=== PATIENT | female | born 1940 | race Caucasian/White ===

== ENCOUNTER 2016-05-11 16:36 | Emergency (ER) | payer MEDICARE, BC ==
[~2016-05-11 16:36] MED LIST: Acetaminophen 325 MG TAB ONE
--- NOTE | 2016-05-11 18:27 | RAD ---
PORTABLE CHEST: DATE: 05/11/16. PROVIDED CLINICAL HISTORY: Altered mental status. FINDINGS: Comparison 08/19/12. The cardiac silhouette remains enlarged. Patchy parenchymal opacity at the left lung base cannot be excluded. No pleural fluid or pneumothorax evident. IMPRESSION: 1. Cardiomegaly. 2. Possible patchy airspace disease at the left lung base. Please correlate with concerns for pneu monia. Followup is recommended. POS: [facility]
--- NOTE | 2016-05-11 18:32 | CT ---
CT BRAIN 05/11/16 PROVIDED CLINICAL HISTORY: Altered mental status. FINDINGS: Comparison 11/10/15. The ventricular system appears normal in size and morphology. There is no evidence for intracranial hemorrhage, or mass effect. The extracranial soft tissues and osseous structures demonstrate an unre markable CT appearance. IMPRESSION: No evidence for intracranial hemorrhage or mass effect. POS: [facility]
[2016-05-11 19:12] LABS: Bilirubin Negative (Negative); Clarity Clear (Clear); Glucose, Urine (Dipstick) Negative (Negative); Leukocyte Negative (Negative); Nitrite Negative (Negative); Protein, Urine (Dipstick) Negative (Neg-Trace); Specific Gravity, Urine 1.025 (1.005-1.030); Urobilinogen 0.2 mg/dL (0.2-1.0); pH, Urine 6.5 (5.0-9.0)
[2016-05-11 19:13] LABS: Blood, Urine Negative (Negative)
[2016-05-11 19:23] LABS: Amphetamine Not Detected (NotDetected); Barbiturates Screen Not Detected (NotDetected); Benzodiazepine Screen Not Detected (NotDetected); Cocaine Metabolite Screen Not Detected (NotDetected); Medtox Control Line Valid? VALID (VALID); Methadone Not Detected (NotDetected); Methamphetamine Not Detected (NotDetected); Opiate Screen Not Detected (NotDetected); Oxycodone Screen Not Detected (NotDetected); Phencyclidine (PCP) Not Detected (NotDetected); THC/Cannabinoid Screen Not Detected (NotDetected); Tricyclic Screen Detected (NotDetected)
[2016-05-11 19:38] LABS: Hemoglobin 12.6 g/dL (12.0-16.0); Mean Corpuscular HGB CONC 32.1 g/dL (32.0-36.0); Mean Corpuscular Hemoglobin 29.3 pg (27.0-31.0); Mean Corpuscular Volume 91.3 fL (81.0-99.0); RBC Distribution Width 13.6 % (11.5-14.5); Red Blood Cell (RBC) Count 4.31 mill/uL (4.20-5.40); White Blood Cell (WBC) Count 7.4 thou/uL (4.8-10.8)
[2016-05-11 19:39] LABS: #Basophils 0.1 thou/uL (0.0-0.2); #Eosinphils 0.5 thou/uL (0.0-0.7); #Monocytes 0.6 thou/uL (0.11-0.59); #Neutrophils 4.2 thou/uL (1.40-6.50); %Eosinophils 6.8 % (0.0-10.0); %Lymphocytes 26.6 % (21.0-51.0); %Monocytes 8.6 % (0.0-10.0); %Neutrophils 56.9 % (42.0-75.0); MDiff Complete? YES; Manual Diff?? NO; Mean Platelet Volume 7.9 fL (7.4-10.4); Platelet Count 279 thou/uL (130-400)
[2016-05-11 19:42] LABS: INR-International Normal Ratio 0.9; PTT 29.8 SEC (22.9-36.1); Prothrombin Time 12.3 SEC (12.0-14.7)
[2016-05-11 19:43] LABS: CKMB 2.3 ng/mL (0-6.6); Potassium 3.5 mmol/L (3.5-5.1); Sodium 146 mmol/L (136-145); Troponin I Less than 0.010 ng/mL (< 0.028)
[2016-05-11 19:44] LABS: Albumin 3.8 g/dL (3.4-4.8); Anion Gap 19 mmol/L (10-20); BUN (Urea Nitrogen) 18 mg/dL (9.8-20.1); Bilirubin, Total 0.3 mg/dL (0.2-1.2); Calc. Creatinine Clearance 0 mL/min (70-130); Calcium 9.7 mg/dL (7.8-10.44); Carbon Dioxide 23 mmol/L (23-31); Chloride 107 mmol/L (98-107); Estimated GFR-MDRD 52; Globulin 2.5 g/dL (2.4-3.5); Glucose 127 mg/dL (83-110); Protein, Total 6.3 g/dL (5.8-8.1)
[2016-05-11 19:45] LABS: ALT (SGPT) 10 U/L (0-55); AST (SGOT) 20 U/L (5-34); Acetaminophen Less than 3.0 mcg/mL (10.0-30.0); Alcohol Less than 10 mg/dL (Less than 10); Alkaline Phosphatase 68 U/L (40-150)
--- NOTE | 2016-05-11 20:14 | ERRECORD ---
[facility] EMERGENCY RECORD HPI MENTAL STATUS CHANGES (18:02 LHOD) CHIEF COMPLAINT: Patient presents for evaluation of confusion. HISTORIAN: History provided by patient, History provided by patient's caregiver, FRIEND. TIME COURSE: PT HAS HX OF DEMENTIA, BUT FOR PAST FEW WEEKS MORE CONFUSED. 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 FRIENDS DO NOT KNOW IF PT TAKING HER MEDICATION. SHE HAS BEEN INCREASINGLY CONFUSED AND TODAY HALLUCINATED THAT HER WAS IN THE HOUSE . PT ALSO REPORTS SHE TALKED TO EMS AT HER HOUSE, BUT FRIEND REPORTS AMBULANCE WAS NEVER CALLED. ROS (18:07 LHOD) CONSTITUTIONAL: Historian denies fever. CARDIOVASCULAR: Historian denies chest pain, reports edema. SOME SWELLING OF LEFT LEG. RESPIRATORY: Historian denies cough, denies shortness of breath. GI: Historian denies abdominal pain, denies nausea, denies vomiting. GENITOURINARY FEMALE: Historian denies dysuria. MUSCULOSKELETAL: Historian denies back pain, denies neck pain. SKIN: Historian denies rash. NEUROLOGIC: Historian reports confusion. HEMO/LYMPHATIC: Historian denies easy bruising. PSYCHIATRIC: Historian denies alcohol abuse. NOTES: All systems reviewed, negative except as described above. PAST MEDICAL HISTORY MEDICAL HISTORY: Flu vaccine not up to date, Tetanus not up to date, Pneumococcal vaccine not up to date, Past medical history includes history of hypertension, which has been treated, Patient is compliant. Past medical history includes history of hypertension. Verified 11/10/15. (16:54 CJEF) FEMALE SURGICAL HISTORY: Sinus sx,, Surgical history of hysterectomy, Surgical history of mastectomy, of both breasts. (16:54 CJEF) PSYCHIATRIC HISTORY: No previous psychiatric history. (16:54 CJEF) SOCIAL HISTORY: Patient denies alcohol use, Patient denies drug use, Patient has no smoking history, Lives at home, with family, Patient has pets. (16:54 CJEF) NOTES: Nursing records reviewed, HX OF DEMENTIA. GENERALLY CARED FOR BY HER , BUT HE HAS BEEN IN HOSPITAL HERE FOR A COUPLE OF WEEKS WITH ARM FRACTURE AND REHAB. FRIENDS DO NOT KNOW IF PT HAS TAKEN ANY OF HER MEDICATION, OR HOW OFTEN. (20:01 LHOD) KNOWN ALLERGIES No Known Allergies (Unconfirmed) No Known Drug Allergies &a-1R&a+25V*p+0X*f0242M*c202B*c15G*c2P*p-0X&a-25V&a+1R Name: Eli Newman : 1940 F76 MedRec: [id number] AcctNum: [id number] Prepared: MonMay 11, 2016 20:15 by Interface Page 1 of 4 pMD [facility] EMERGENCY RECORD CURRENT MEDICATIONS (16:51 EF) Aricept: TABLET : Strength - 5 mg : ORAL Patient Dose: 1 tab(s) Oral once a day. carvedilol: TABLET : Strength - 6.25 mg : ORAL Patient Dose: 25 tab(s) Oral 2 times a day. cloNIDine HCl: TABLET : Strength - 0.1 mg : ORAL Patient Dose: 1 mg Oral once a day. gabapentin: TABLET : Strength - 300 mg : ORAL Patient Dose: 2 cap(s) Oral 3 times a day. hydrochlorothiazide: TABLET : Strength - 25 mg : ORAL Patient Dose: 1 tab(s) Oral once a day. Lexapro: TABLET : Strength - 20 mg : ORAL Patient Dose: 1 null Oral once a day. losartan: TABLET : Strength - 50 mg : ORAL Patient Dose: 2 tab(s) Oral once a day. SEROquel: TABLET : Strength - 300 mg : ORAL Patient Dose: 50 mg Oral. verapamil: CAPSULE, EXTENDED RELEASE PELLETS 24 HR : Strength - 180 mg : ORAL Patient Dose: 1 tab(s) Oral once a day. VITAL SIGNS VITAL SIGNS: BP: 148/59, Pulse: 74, Resp: 18, Temp: 98.2 (Tympanic), Pain: 0, O2 sat: 100 on Room Air, Time: 05/11/2016 16:42. (16:42 CJEF) BP: 143/67, Pulse: 74, Resp: 17, O2 sat: 100 on Room Air, Time: 05/11/2016 17:06. (17:06 [facility]) BP: 143/65, Pulse: 71, Resp: 18, Pain: 0, O2 sat: 99 on Room Air, Time: 05/11/2016 17:35. (17:35 [facility]) BP: 130/49, Pulse: 72, Resp: 20, Pain: 0, O2 sat: 99 on Room Air, Time: 05/11/2016 18:02. (18:02 CJEF) BP: 129/56, Pulse: 70, Resp: 16, Pain: 9, O2 sat: 99 on Room Air, Time: 05/11/2016 18:26. (18:26 CJEF) BP: 131/54, Pulse: 70, Resp: 18, O2 sat: 100 on Room Air, Time: 05/11/2016 18:44. (18:44 CJEF) BP: 148/65, Pulse: 70, Resp: 18, Temp: 98.5 (Tympanic), Pain: 5, O2 sat: 98 on Room Air, Time: 05/11/2016 19:15. (19:15 CJEF) PHYSICAL EXAM (18:09 LHOD) CONSTITUTIONAL: Vital Signs Reviewed, Patient afebrile, Pulse normal, Blood pressure normal, Respiratory rate normal, AWAKE, ALERT BUT ORIENTED TO PERSON ONLY. &a-1R&a+25V*p+0X*[id number]*c202B*c15G*c2P*p-0X&a-25V&a+1R Name: Eli Newman : 1940 F76 MedRec: [id number] AcctNum: [id number] Prepared: MonMay 11, 2016 20:15 by Interface Page 2 of 4 pMD [facility]GENC[facility] RECORD HEAD: SMALL AREAS OF POSSIBLE BRUISING OVER MALAR AREAS. EYES: Pupils equally round and reactive to light, Extraocular muscles intact. ENT: Pharynx exam normal. NECK: Neck exam included findings of normal range of motion, Trachea midline. RESPIRATORY CHEST: Respiratory exam included findings of no respiratory distress, Breath sounds clear. CARDIOVASCULAR: Cardiovascular exam included findings of heart rate regular rate and rhythm, Heart sounds normal. ABDOMEN FEMALE: Abdominal exam included findings of abdomen nontender. BACK: Back exam normal. UPPER EXTREMITY: Upper extremity exam normal. LOWER EXTREMITY: LEFT ANKLE WITH PITTING EDEMA. NO TENDERNESS OR REDNESS OF LEFT LEG. NEURO: AWAKE, ALERT BUT DEPRESSED APPEARING, STATING SHE HAS PROBLEMS WITH HER MEMORY.. SKIN: NO RASH, POSSIBLE SMALL BRUISING OF BILATERAL MALAR . PSYCHIATRIC: Affect, anxious, ORIENTED TO SELF. EKG INTERPRETATION (17:33 LHOD) 12 LEAD EKG INTERPRETATION: 12 lead EKG interpreted by Emergency Department Physician at time of study, 12 lead EKG shows normal sinus rhythm, Rate (beats per minute): 72, with no ectopics, T waves, flattened, Areas affected: inferior leads, Areas affected: lateral leads, [place] normal. RADIOLOGYINTERPRETATION HEAD: Head CT negative, without contrast. (18:06 LHOD) CHEST: Chest films negative. (17:36 LHOD) MEDICATION ADMINISTRATION SUMMARY Drug Name: *acetaminophen oral, Dose Ordered: 650 mg, Route: Oral, Status: Given, Time: 18:35 05/11/2016, *Additional information available in notes, Detailed record available in Medication Service section. DOCTOR NOTES (20:09 LHOD) TEXT: COMPUTER WAS DOWN AT LEAST AN HOUR WHILE PT WAS IN ED, DELAYING CARE. FRIEND WAS HOPING PT MIGHT BE ADMITTED FOR OBSERVATION, BUT NO BEDS AVAILABLE HERE AND SHE HAS NO MEDICAL NECESSITY TO BE ADMITTED. FRIEND STATES SHE WILL TAKE PT TO SEE DR. SILVER TOMORROW. PROBLEM LIST &a-1R&a+25V*p+0X*[id number]*c202B*c15G*c2P*p-0X&a-25V&a+1R Name: Eli Newman : 1940 F76 MedRec: [id number] AcctNum: [id number] Prepared: MonMay 11, 2016 20:15 by Interface Page 3 of 4 pMD [facility] EM[facility]GENC[facility] RECORD No recorded problems DIAGNOSIS (19:08 LHOD) FINAL: PRIMARY: ALTERED MENTAL STATUS WITH DEMENTIA. PRESCRIPTION No recorded prescriptions DISPOSITION PATIENT: Disposition Type: Discharge, Disposition: *Discharge Home, Condition: Fair. (19:08 LHOD) Patient left the department. (19:38 [facility]) Keith: CJEF=SHARON Manning, Kari LHOD=MD Desiree, Harley &a-1R&a+25V*p+0X*[id number]*c202B*c15G*c2P*p-0X&a-25V&a+1R Name: Eli Newman : 1940 F76 MedRec: [id number] AcctNum: [id number] Prepared: MonMay 11, 2016 20:15 by Interface Page [address] [facility]
--- NOTE | 2016-05-11 20:19 | PICIS ---
[facility] EMERGENCY RECORD TRIAGE (MonMay 11, 2016 16:47 CJEF) TRIAGE NOTES: PT REPORTS "I DONT KNOW" WHEN INITIALLY ASKED WHAT WAS GOING ON. PT REPORTS THAT SHE HAD A NIGHTMARE THIS MORNING THAT "SEEMED SO REAL, I THOUGH HE WAS ". THE PT'S IS CURRENTLY HERE ADMITTED IN THE HOSPTIAL. FRIEND [facility] PT STATES THAT THE PT HAD A CONFUSED EPISODE AND THOUGHT THE WAS AT HOME. THE PT'S FRIEND IS HESITANT TO SAY MUCH IN TRIAGE DUE TO PT WITHIN HEARING RANGE. WILL ASK HER MORE INFO WHEN PT IS IN ROOM. PT REPORTS HEADACHE AND SLIGHT PAIN TO CHEEK THAT SHE STATES IS FROM SINUS ISSUES. WHEN PT ALONE, PT STATES THAT SHE WAS SENT HERE FOR THE CONFUSED EPISODE, THOUGH SHE WILL NOT STATE ANY THING MORE. PT'S FRIEND PULLED ASIDE. FRIEND STATES THAT OVER LAST COUPLE MONTHS, THE PT HAS BEEN VERY CONFUSED, WORSE SINCE THE PT HAS BEEN ADMITTED IN THIS HOSPITAL. PT LOSES HER CAR, DRIVES RECKLESSLY BY WEAVING ALL ON THE ROAD, SEES PEOPLE IN HER HOUSE, AND HALLUCINATING. (MonMay 11, 2016 16:47 CJEF) PATIENT: NAME: Eli Newman, AGE: 76, GENDER: female, : Sun 1940, TIME OF GREET: MonMay 11, 2016 16:37, PREFERRED LANGUAGE: Hong Konger, ETHNICITY: Not or , ECODE BILLING MAP: [facility], SSN: [id number], Zip Code: [address], KG WEIGHT: 55.34, PHONE: , , , PERSON ID: [id number], PCP: Loretta SILVER KERRY. (MonMay 11, 2016 16:47 CJEF) COMPLAINT: CONFUSION. (MonMay 11, 2016 16:47 CJEF) ADMISSION: URGENCY: 3 Urgent, ADMISSION SOURCE: Home, TRANSPORT: Walk-in, BED: ED -02. (MonMay 11, 2016 16:47 CJEF) ASSESSMENT: Assessment: CONFUSION. (16:54 CJEF) PAIN: Patient complains of pain described as, Location HEAD AND LEFT CHEEK. (16:54 CJEF) IMMUNIZATIONS: Flu vaccine not up to date, Tetanus not up to date, Pneumococcal vaccine not up to date. (16:54 CJEF) SIRS SCORING: Heart Rate 55-109 (0), Temp range 96.8-101.1 (0), respiratory rate 12-24 (0), Mental status altered: yes (1), Total SIRS Score 1. (16:54 CJEF) TRIAGE SCREENING: Patient denies suicidal ideation, Patient denies presence of domestic violence. (16:54 CJEF) PROVIDERS: TRIAGE NURSE: Kari Manning RN. (MonMay 11, 2016 16:47 CJEF) VITAL SIGNS: BP 148/59, Pulse 74, Resp 18, Temp 98.2, (Tympanic), Pain 0, O2 Sat 100, on Room Air, Time 05/11/2016 16:42. (16:42 CJEF) PREVIOUS VISIT ALLERGIES: No Known Drug Allergies. (MonMay 11, 2016 16:47 CJEF) No Known Drug Allergies. (16:54 CJEF) KNOWN ALLERGIES No Known Allergies (Unconfirmed) No Known Drug Allergies CURRENT MEDICATIONS (16:51 CJEF) &a-1R&a+25V*p+0X*v1863K*c202B*c15G*c2P*p-0X&a-25V&a+1R Name: Eli Newman : 1940 F76 MedRec: [id number] AcctNum: [id number] Prepared: MonMay 11, 2016 20:15 by Interface Page 1 of 16 pMD [facility] EMERGENCY RECORD Aricept: TABLET : Strength - 5 mg : ORAL Patient Dose: 1 tab(s) Oral once a day. carvedilol: TABLET : Strength - 6.25 mg : ORAL Patient Dose: 25 tab(s) Oral 2 times a day. cloNIDine HCl: TABLET : Strength - 0.1 mg : ORAL Patient Dose: 1 mg Oral once a day. gabapentin: TABLET : Strength - 300 mg : ORAL Patient Dose: 2 cap(s) Oral 3 times a day. hydrochlorothiazide: TABLET : Strength - 25 mg : ORAL Patient Dose: 1 tab(s) Oral once a day. Lexapro: TABLET : Strength - 20 mg : ORAL Patient Dose: 1 null Oral once a day. losartan: TABLET : Strength - 50 mg : ORAL Patient Dose: 2 tab(s) Oral once a day. SEROquel: TABLET : Strength - 300 mg : ORAL Patient Dose: 50 mg Oral. verapamil: CAPSULE, EXTENDED RELEASE PELLETS 24 HR : Strength - 180 mg : ORAL Patient Dose: 1 tab(s) Oral once a day. VITAL SIGNS VITAL SIGNS: BP: 148/59, Pulse: 74, Resp: 18, Temp: 98.2 (Tympanic), Pain: 0, O2 sat: 100 on Room Air, Time: 05/11/2016 16:42. (16:42 CJEF) BP: 143/67, Pulse: 74, Resp: 17, O2 sat: 100 on Room Air, Time: 05/11/2016 17:06. (17:06 CJEF) BP: 143/65, Pulse: 71, Resp: 18, Pain: 0, O2 sat: 99 on Room Air, Time: 05/11/2016 17:35. (17:35 CJEF) BP: 130/49, Pulse: 72, Resp: 20, Pain: 0, O2 sat: 99 on Room Air, Time: 05/11/2016 18:02. (18:02 CJEF) BP: 129/56, Pulse: 70, Resp: 16, Pain: 9, O2 sat: 99 on Room Air, Time: 05/11/2016 18:26. (18:26 CJEF) BP: 131/54, Pulse: 70, Resp: 18, O2 sat: 100 on Room Air, Time: 05/11/2016 18:44. (18:44 CJEF) BP: 148/65, Pulse: 70, Resp: 18, Temp: 98.5 (Tympanic), Pain: 5, O2 sat: 98 on Room Air, Time: 05/11/2016 19:15. (19:15 CJEF) NURSING ASSESSMENT: FALL RISK (16:57 CJEF) FALL RISK: Fall risk assessment findings include: History of falls (5), No bed rest greater than 2 days (0), No use of level of consciousness altering agents with mentation or cognitive changes (0), No change in blood pressure (0), Sensory deficits (1), &a-1R&a+25V*p+0X*s9583U*c202B*c15G*c2P*p-0X&a-25V&a+1R Name: Eli Newman : 1940 F76 MedRec: [id number] AcctNum: [id number] Prepared: MonMay 11, 2016 20:15 by Interface Page 2 of 16 pMD [facility] EMERGENCY RECORD Impaired mobility (3), Neurologic diagnosis (3), No elimination problems (0), Confusion (3), Total score 15, Fall risk. HENDRICH II FALL RISK: Hendrich II Fall Risk assessment findings include patient confused, disoriented or impulsive(4), not symptomatic or depressed, no altered elimination, no dizziness or vertigo, female, no antiepileptics (anticonvulsants) administered, no Benzodiazepines administered, Multiple attempts, but successful(3), Total score 7, Score greater than 5. Patient is at high risk for fall. Fall risk precautions initiated. NURSING ASSESSMENT: NEURO (16:54 [facility]) GCS: (6) Obeying command:, (4) Confused conversation:, (4) Spontaneous eye opening., Result: 14. CONSTITUTIONAL: Complex assessment performed, Patient arrives ambulatory, Gait steady, History obtained from, friend: ROYA BAI, Patient appears comfortable, Patient cooperative, Patient alert, Patient is, oriented to person, oriented to place, disoriented, confused, Skin warm, Skin dry, Skin normal in color, Mucous membranes pink, Mucous membranes moist, Patient is well-groomed, PT REPORTS "I DONT KNOW" WHEN INITIALLY ASKED WHAT WAS GOING ON. PT REPORTS THAT SHE HAD A NIGHTMARE THIS MORNING THAT "SEEMED SO REAL, I THOUGH HE WAS ". THE PT'S IS CURRENTLY HERE ADMITTED IN THE HOSPTIAL. FRIEND [facility] PT STATES THAT THE PT HAD A CONFUSED EPISODE AND THOUGHT THE WAS AT HOME. THE PT'S FRIEND IS HESITANT TO SAY MUCH IN TRIAGE DUE TO PT WITHIN HEARING RANGE. WILL ASK HER MORE INFO WHEN PT IS IN ROOM. PT REPORTS HEADACHE AND SLIGHT PAIN TO CHEEK THAT SHE STATES IS FROM SINUS ISSUES. WHEN PT ALONE, PT STATES THAT SHE WAS SENT HERE FOR THE CONFUSED EPISODE, THOUGH SHE WILL NOT STATE ANY THING MORE. PT'S FRIEND PULLED ASIDE. FRIEND STATES THAT OVER LAST COUPLE MONTHS, THE PT HAS BEEN VERY CONFUSED, WORSE SINCE THE PT HAS BEEN ADMITTED IN THIS HOSPITAL. PT LOSES HER CAR, DRIVES RECKLESSLY BY WEAVING ALL ON THE ROAD, SEES PEOPLE IN HER HOUSE, AND HALLUCINATING. PT ORIENTED TO SELF AND PLACE, UNABLE TO TELL THE TIME OR EVENT. PAIN: aching pain, HEAD AND LEFT CHEEK, on a scale 0-10 patient rates pain as 7. NEURO: Pupils equally round and reactive to light, Able to close eyes, Face symmetrical, Speech normal, Hand grasps equal, Upper extremity strength strong, Lower extremity strength strong, Associated with dizziness described as, feeling unsteady, no associated nausea, no associated syncopal episode, no associated vomiting, Associated with weakness, GENERALIZED. ENT: Ear assessment findings include ear normal to inspection, Nasal assessment findings include nose normal to inspection, Mouth and throat assessment findings include mouth inspection normal. NOTES: Patient tolerated procedure well. SAFETY: Side rails up, Cart/Stretcher in lowest position, Family &a-1R&a+25V*p+0X*p2827R*c202B*c15G*c2P*p-0X&a-25V&a+1R Name: Eli Newman : 1940 F76 MedRec: [id number] AcctNum: [id number] Prepared: MonMay 11, 2016 20:15 by Interface Page 3 of 16 pMD [facility] EMERGENCY RECORD at bedside, Call light within reach, Hospital ID band on. NURSING ASSESSMENT: SKIN (16:58 [facility]) SKIN: Skin assessment findings include skin warm, Skin dry, Skin normal in color. STEPHEN SCALE: (3) Sensory perception slightly limited, (3) Skin is occasionally moist, (3) Patient walks occasionally, (3) Slightly limited mobility, (3) Adequate nutrition, (3) Patient has no apparent problem moving, Stephen Risk Total: 18. NOTES: Patient tolerated procedure well. SAFETY: Side rails up, Cart/Stretcher in lowest position, Family at bedside, Call light within reach, Hospital ID band on. NURSING PROCEDURE: BEDSIDE RADIOLOGY (17:23 [facility]) PATIENT IDENTIFIER: Patient actively involved in identification process, Patient's identity verified by patient stating name, Patient's identity verified by patient stating date. BEDSIDE RADIOLOGY: Portable chest x-ray performed. NOTES: Patient tolerated procedure well. SAFETY: Side rails up, Cart/Stretcher in lowest position, Family at bedside, Call light within reach, Hospital ID band on. NURSING PROCEDURE: BEDSIDE TESTING (18:08 [facility]) PATIENT IDENTIFIER: Patient's identity verified by patient stating name, Patient's identity verified by hospital ID bracelet. GLUCOSE: Glucose testing indicated for mental status changes, Capillary blood sample, Result (mg/dl) 114, Machine number ED. FOLLOW-UP: After procedure, results given to Dr. RAMÍREZ. NURSING PROCEDURE: FLUMER (17:04 CJ) PATIENT IDENTIFIER: Patient actively involved in identification process, Patient's identity verified by patient stating name, Patient's identity verified by patient stating date. FLUMER: Cardiac monitoring indicated for mental status changes, Patient placed on rail specialist, Heart rate: 70, showing normal sinus rhythm, Patient placed on non-invasive blood pressure monitor, Patient placed on continuous pulse oximetry, Adult/pediatric oxisensor applied. FOLLOW-UP: After procedure, alarms set and on, After procedure, patient tolerating monitoring. NOTES: Patient tolerated procedure well. SAFETY: Side rails up, Cart/Stretcher in lowest position, Family at bedside, Call light within reach, Hospital ID band on. NURSING PROCEDURE: DISCHARGE NOTE (19:15 CJ) DISCHARGE: Patient discharged to home, in a wheelchair, friend driving, accompanied by friend, Summary of Care printed/ provided, Patient requested and was provided an electronic copy of Discharge Instructions, Transition record given to patient, Discharge &a-1R&a+25V*p+0X*r8811K*c202B*c15G*c2P*p-0X&a-25V&a+1R Name: Eli Newman : 1940 F76 MedRec: [id number] AcctNum: [id number] Prepared: MonMay 11, 2016 20:15 by Interface Page 4 of 16 pMD [facility] EMERGENCY RECORD instructions given to patient, Simple or moderate discharge teaching performed, Above person(s) verbalized understanding of discharge instructions and follow-up care, Patient treated and evaluated by physician. BELONGINGS: Belongings remain with patient. NOTES: Patient tolerated procedure well. SAFETY: Side rails up, Cart/Stretcher in lowest position, Family at bedside, Call light within reach, Hospital ID band on. NURSING PROCEDURE: EKG CHART (17:20 CJ) PATIENT IDENTIFIER: Patient actively involved in identification process, Patient's identity verified by patient stating name, Patient's identity verified by patient stating date. EKG: EKG indicated for AMS, 12 lead EKG performed on the left chest, first EKG. FOLLOW-UP: After procedure, EKG for interpretation given to Dr. RAMÍREZ. NOTES: Patient tolerated procedure well. SAFETY: Side rails up, Cart/Stretcher in lowest position, Family at bedside, Call light within reach, Hospital ID band on. NURSING PROCEDURE: IV PATIENT IDENITIFIER: Patient's identity verified by patient stating name, Patient's identity verified by hospital ID bracelet. (18:09 JPER) Patient actively involved in identification process, Patient's identity verified by patient stating name, Patient's identity verified by patient stating date. (19:15 CJEF) IV SITE 1: IV therapy indicated for hydration, IV therapy indicated for medication administration, IV established, to the left antecubital, using a 22 gauge catheter, in one attempt, IV site prepped with CHLOROPREP, Saline lock established, Labs drawn at time of placement, labeled in the presence of the patient and sent to lab. (18:09 JPER) FOLLOW-UP SITE 1: After procedure, sterile transparent dressing applied. (18:09 JPER) After procedure, 2x2 dressing applied, IV discontinued, due to patient being discharged, catheter intact. (19:15 CJEF) NOTES: Emotional support needed and given. (18:09 JPER) Patient tolerated procedure well. (19:15 CJEF) SAFETY: Side rails up, Cart/Stretcher in lowest position, Family at bedside, Call light within reach, Hospital ID band on. (19:15 CJEF) NURSING PROCEDURE: NURSE NOTES NURSES NOTES: Patient in no apparent distress, Patient resting quietly, Notes: ER MD AT BEDSIDE. (17:05 CJEF) Patient in no apparent distress, Patient resting quietly, Notes: PT RESTING IN BED QUIETLY WITH FAMILY AT BEDSIDE. NO DISTRESS NOTED. (17:35 CJEF) &a-1R&a+25V*p+0X*h8976P*c202B*c15G*c2P*p-0X&a-25V&a+1R Name: Eli Newman : 1940 F76 MedRec: [id number] AcctNum: [id number] Prepared: MonMay 11, 2016 20:15 by Interface Page 5 of 16 pMD [facility] EMERGENCY RECORD Patient in no apparent distress, Patient resting quietly, Notes: PT RESTING IN BED QUIETLY WITH FAMILY AT BEDSIDE. NO DISTRESS NOTED. (18:23 CJEF) Patient in no apparent distress, Patient resting quietly, Notes: PT RESTING IN BED QUIETLY WITH FAMILY AT BEDSIDE. NO DISTRESS NOTED. PT ASSISTED TO BSC. (19:00 CJEF) Notes: PT DISCHARGED AT 1920. (19:20 CJEF) NURSING PROCEDURE: TRANSPORT TO TESTS PATIENT IDENTIFIER: Patient actively involved in identification process, Patient's identity verified by patient stating name, Patient's identity verified by patient stating date. (17:45 CJEF) TRANSPORT TO TESTS: Transport indicated to facilitate diagnosis, Patient transported to CT scan, via cart, Accompanied by x-ray rf test technician. (17:45 CJEF) FOLLOW-UP: After procedure, patient returned to emergency department. (17:55 CJEF) NOTES: Patient tolerated procedure well. (17:45 CJEF) SAFETY: Side rails up, Cart/Stretcher in lowest position, Family at bedside, Call light within reach, Hospital ID band on. (17:45 CJEF) NURSING PROCEDURE: URINE COLLECTION (19:00 CJEF) PATIENT IDENTIFIER: Patient actively involved in identification process, Patient's identity verified by patient stating name, Patient's identity verified by patient stating date. URINE COLLECTION FEMALE: Urine collected by mid-stream clean catch, urine yellow in color, and clear. NOTES: Patient tolerated procedure well. SAFETY: Side rails up, Cart/Stretcher in lowest position, Family at bedside, Call light within reach, Hospital ID band on. ORDER DETAILS Order Name: Accucheck, Status: Done, Time: 18:08 05/11/2016, User: REBECCA, - Ordered for: MD Ramírez Lefayne, - Entered by: MD Ramírez Lefayne - MonMay 11, 2016 17:16, - Quantity: 1, Order Name: Acetaminophen, Status: Active, Time: 17:16 05/11/2016, User: STEPHAN, - Ordered for: MD Ramírez Lefayne, - Entered by: MD Ramírez Lefayne - MonMay 11, 2016 17:16, - Quantity: 1, Order Name: Alcohol, Status: Active, Time: 17:16 05/11/2016, User: STEPHAN, - Ordered for: MD Ramírez Lefayne, - Entered by: MD Ramírez Lefayne - MonMay 11, 2016 17:16, - Quantity: 1, &a-1R&a+25V*p+0X*j1739T*c202B*c15G*c2P*p-0X&a-25V&a+1R Name: Eli Newman : 1940 F76 MedRec: [id number] AcctNum: [id number] Prepared: MonMay 11, 2016 20:15 by Interface Page 6 of 16 pMD [facility] EMERGENCY RECORD Order Name: FLUMER ED, Status: Done, Time: 17:42 05/11/2016, User: SPEEDY, - Ordered for: MD Ramírez Lefayne, - Entered by: MD Ramírez Lefayne - MonMay 11, 2016 17:15, - Quantity: 1, Order Name: Cardiac Profile w/CKMB & Troponin - I, Status: Active, Time: 17:15 05/11/2016, User: STEPHAN, - Ordered for: MD Ramírez Lefayne, - Entered by: MD Ramírez Lefayne - MonMay 11, 2016 17:15, - Quantity: 1, Order Name: CBC with Differential, Status: Active, Time: 17:15 05/11/2016, User: STEPHAN, - Ordered for: MD Ramírez Lefayne, - Entered by: MD Ramírez Lefayne - MonMay 11, 2016 17:15, - Quantity: 1, Order Name: Comprehensive Metabolic Panel, Status: Active, Time: 17:15 05/11/2016, User: STEPHAN, - Ordered for: MD Ramírez Lefayne, - Entered by: MD Ramírez Lefayne - MonMay 11, 2016 17:15, - Quantity: 1, Order Name: CT Brain WO Con, Status: Active, Time: 17:15 05/11/2016, User: STEPHAN, - Ordered for: MD Ramírez Lefayne, - Entered by: MD Ramírez Lefayne - MonMay 11, 2016 17:15, - Quantity: 1, Order Name: Drug Screen, Urine, Status: Active, Time: 17:16 05/11/2016, User: STEPHAN, - Ordered for: MD Ramírez Lefayne, - Entered by: MD Ramírez Lefayne - MonMay 11, 2016 17:16, - Quantity: 1, Order Name: EKG 12 Lead in Emergency Room, Status: Active, Time: 17:15 05/11/2016, User: STEPHAN, - Ordered for: MD Ramírez Lefayne, - Entered by: MD Ramírez Lefayne - MonMay 11, 2016 17:15, - Quantity: 1, Order Name: SALINE LOCK, Status: Done, Time: 18:08 05/11/2016, User: REBECCA, - Ordered for: MD Ramírez Lefayne, - Entered by: MD Ramírez Lefayne - MonMay 11, 2016 17:15, - Quantity: 1, Order Name: Urinalysis w/ Rflx Microscopic, Status: Active, Time: 17:16 05/11/2016, User: STEPHAN, - Ordered for: MD Ramírez Lefayne, - Entered by: MD Ramírez Lefayne - MonMay 11, 2016 17:16, - Quantity: 1, Order Name: XR Chest 1 View Portable, Status: Active, Time: 17:15 05/11/2016, User: STEPHAN, - Ordered for: MD Ramírez Lefayne, - Entered by: MD Ramírez Lefayne - MonMay 11, 2016 17:15, - Quantity: 1. &a-1R&a+25V*p+0X*v1177R*c202B*c15G*c2P*p-0X&a-25V&a+1R Name: Eli Newman : 1940 F76 MedRec: [id number] AcctNum: [id number] Prepared: MonMay 11, 2016 20:15 by Interface Page 7 of 16 pMD [facility] EMERGENCY RECORD MEDICATION ADMINISTRATION SUMMARY Drug Name: *acetaminophen oral, Dose Ordered: 650 mg, Route: Oral, Status: Given, Time: 18:35 05/11/2016, *Additional information available in notes, Detailed record available in Medication Service section. MEDICATION SERVICE acetaminophen oral: Order: acetaminophen oral (acetaminophen) - Dose: 650 mg : Oral Schedule: Now Notes: Read back and verified, Verbal Order Ordered by: Harley Ramírez MD Entered by: Kari Manning RN MonMay 11, 2016 19:07 Documented as given by: Kari Manning RN MonMay 11, 2016 18:35 Patient, Medication, Dose, Route and Time verified prior to administration. Amount given: 650MG, Site: Medication administered P.O., Mouth check performed after administration of medication, Patient appears Awake and alert- acceptable, Correct patient, time, route, dose and medication confirmed prior to administration, Patient advised of actions and side-effects prior to administration, Allergies confirmed and medications reviewed prior to administration, Patient tolerated procedure well, Patient in position of comfort, Side rails up, Cart in lowest position, Family at bedside. : Follow Up : Response assessment performed, No signs or symptoms of allergic reaction noted, Decreased pain, Advised not to ambulate without assistance, Patient in position of comfort, Side rails up, Cart in lowest position, Family at bedside. (19:15 CJEF) HPI MENTAL STATUS CHANGES (18:02 LHOD) CHIEF COMPLAINT: Patient presents for evaluation of confusion. HISTORIAN: History provided by patient, History provided by patient's caregiver, FRIEND. TIME COURSE: PT HAS HX OF DEMENTIA, BUT FOR PAST FEW WEEKS MORE CONFUSED. 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 FRIENDS DO NOT KNOW IF PT TAKING HER MEDICATION. SHE HAS BEEN INCREASINGLY CONFUSED AND TODAY HALLUCINATED THAT HER WAS IN THE HOUSE . PT ALSO REPORTS SHE TALKED TO EMS AT HER HOUSE, BUT FRIEND REPORTS AMBULANCE WAS NEVER CALLED. ROS (18:07 LHOD) CONSTITUTIONAL: Historian denies fever. CARDIOVASCULAR: Historian denies chest pain, reports edema. SOME SWELLING OF LEFT LEG. RESPIRATORY: Historian denies cough, denies shortness of breath. GI: Historian denies abdominal pain, denies nausea, denies vomiting. &a-1R&a+25V*p+0X*h2477R*c202B*c15G*c2P*p-0X&a-25V&a+1R Name: Eli Newman : 1940 F76 MedRec: [id number] AcctNum: [id number] Prepared: MonMay 11, 2016 20:15 by Interface Page 8 of 16 pMD [facility] EMERGENCY RECORD GENITOURINARY FEMALE: Historian denies dysuria. MUSCULOSKELETAL: Historian denies back pain, denies neck pain. SKIN: Historian denies rash. NEUROLOGIC: Historian reports confusion. HEMO/LYMPHATIC: Historian denies easy bruising. PSYCHIATRIC: Historian denies alcohol abuse. NOTES: All systems reviewed, negative except as described above. PAST MEDICAL HISTORY MEDICAL HISTORY: Flu vaccine not up to date, Tetanus not up to date, Pneumococcal vaccine not up to date, Past medical history includes history of hypertension, which has been treated, Patient is compliant. Past medical history includes history of hypertension. Verified 11/10/15. (16:54 CJEF) FEMALE SURGICAL HISTORY: Sinus sx,, Surgical history of hysterectomy, Surgical history of mastectomy, of both breasts. (16:54 CJEF) PSYCHIATRIC HISTORY: No previous psychiatric history. (16:54 CJEF) SOCIAL HISTORY: Patient denies alcohol use, Patient denies drug use, Patient has no smoking history, Lives at home, with family, Patient has pets. (16:54 CJEF) NOTES: Nursing records reviewed, HX OF DEMENTIA. GENERALLY CARED FOR BY HER , BUT HE HAS BEEN IN HOSPITAL HERE FOR A COUPLE OF WEEKS WITH ARM FRACTURE AND REHAB. FRIENDS DO NOT KNOW IF PT HAS TAKEN ANY OF HER MEDICATION, OR HOW OFTEN. (20:01 LHOD) PHYSICAL EXAM (18:09 LHOD) CONSTITUTIONAL: Vital Signs Reviewed, Patient afebrile, Pulse normal, Blood pressure normal, Respiratory rate normal, AWAKE, ALERT BUT ORIENTED TO PERSON ONLY. HEAD: SMALL AREAS OF POSSIBLE BRUISING OVER MALAR AREAS. EYES: Pupils equally round and reactive to light, Extraocular muscles intact. ENT: Pharynx exam normal. NECK: Neck exam included findings of normal range of motion, Trachea midline. RESPIRATORY CHEST: Respiratory exam included findings of no respiratory distress, Breath sounds clear. CARDIOVASCULAR: Cardiovascular exam included findings of heart rate regular rate and rhythm, Heart sounds normal. ABDOMEN FEMALE: Abdominal exam included findings of abdomen nontender. BACK: Back exam normal. UPPER EXTREMITY: Upper extremity exam normal. LOWER EXTREMITY: LEFT ANKLE WITH PITTING EDEMA. NO TENDERNESS OR REDNESS OF LEFT LEG. NEURO: AWAKE, ALERT BUT DEPRESSED APPEARING, STATING SHE &a-1R&a+25V*p+0X*p9041C*c202B*c15G*c2P*p-0X&a-25V&a+1R Name: Eli Newman : 1940 F76 MedRec: [id number] AcctNum: [id number] Prepared: MonMay 11, 2016 20:15 by Interface Page 9 of 16 pMD [facility] EMERGENCY RECORD HAS PROBLEMS WITH HER MEMORY.. SKIN: NO RASH, POSSIBLE SMALL BRUISING OF BILATERAL MALAR . PSYCHIATRIC: Affect, anxious, ORIENTED TO SELF. LAB INTERPRETATION (20:04 LHOD) INTERPRETATION: I reviewed the lab results, CBC normal, Chemistry normal, Cardiac enzymes normal, Urinalysis normal, Urine toxicology, positive for tricyclics, Alcohol level negative, by blood level, Aspirin level therapeutic, Tylenol level therapeutic. EVENTS TRANSFER: Triage to Emergency Main ED -02. (MonMay 11, 2016 16:47 CJEF) Removed from Emergency Main ED -02. (19:38 CJEF) RADIOLOGYINTERPRETATION HEAD: Head CT negative, without contrast. (18:06 LHOD) CHEST: Chest films negative. (17:36 LHOD) EKG INTERPRETATION (17:33 LHOD) 12 LEAD EKG INTERPRETATION: 12 lead EKG interpreted by Emergency Department Physician at time of study, 12 lead EKG shows normal sinus rhythm, Rate (beats per minute): 72, with no ectopics, T waves, flattened, Areas affected: inferior leads, Areas affected: lateral leads, [place] normal. DOCTOR NOTES (20:09 LHOD) TEXT: COMPUTER WAS DOWN AT LEAST AN HOUR WHILE PT WAS IN ED, DELAYING CARE. FRIEND WAS HOPING PT MIGHT BE ADMITTED FOR OBSERVATION, BUT NO BEDS AVAILABLE HERE AND SHE HAS NO MEDICAL NECESSITY TO BE ADMITTED. FRIEND STATES SHE WILL TAKE PT TO SEE DR. SILVER TOMORROW. PROBLEM LIST No recorded problems DIAGNOSIS (19:08 LHOD) FINAL: PRIMARY: ALTERED MENTAL STATUS WITH DEMENTIA. DISPOSITION PATIENT: Disposition Type: Discharge, Disposition: *Discharge Home, Condition: Fair. (19:08 LHOD) Patient left the department. (19:38 CJEF) INSTRUCTION (19:09 LHOD) FOLLOWUP: Raghavendra SILVER., [facility], Obstetrics and Gynecology, [address] [place] [id number], [phone], Follow up with Primary &a-1R&a+25V*p+0X*y2534R*c202B*c15G*c2P*p-0X&a-25V&a+1R Name: Eli Newman : 1940 F76 MedRec: [id number] AcctNum: [id number] Prepared: MonMay 11, 2016 20:15 by Interface Page 10 of 16 pMD [facility] EMERGENCY RECORD Care Physician as scheduled. SPECIAL: FRIEND WILL NEED TO MONITOR ALL MEDICATION. FOLLOW UP WITH DR. SILVER TOMORROW. Follow-up with your PCP. PRESCRIPTION No recorded prescriptions IMAGING *DISCHARGE INSTRUCTIONS RECEIPT: Image captured from scanner. (19:41 CJEF) *SUPPLY CHARGE SHEET: Image captured from scanner. (19:41 CJEF) *EKG: Image captured from scanner. (19:41 CJEF) DOWNTIME ORDERS: Image captured from scanner. (19:42 CJEF) ADMIN (20:11 LHOD) DIGITAL SIGNATURE: MD Desiree, Harley. RESULTS RADIOLOGY: CT Brain WO Con Observe DT: MonMay 11, 2016 17:17, BR CT BRAIN 05/11/16 PROVIDED CLINICAL HISTORY: Altered mental status. FINDINGS: Comparison 11/10/15. The ventricular system appears normal in size and morphology. There is no evidence for intracranial hemorrhage, or mass effect. The extracranial soft tissues and osseous structures demonstrate an unre markable CT appearance. IMPRESSION: No evidence for intracranial hemorrhage or mass effect. POS: [facility] . (19:08 LHOD) XR Chest 1 View Portable Observe DT: MonMay 11, 2016 17:20, CXRP PORTABLE CHEST: DATE: 05/11/16. PROVIDED CLINICAL HISTORY: Altered mental status. &a-1R&a+25V*p+0X*t0915V*c202B*c15G*c2P*p-0X&a-25V&a+1R Name: Eli Newman : 1940 F76 MedRec: [id number] AcctNum: [id number] Prepared: MonMay 11, 2016 20:15 by Interface Page 11 of 16 pMD [facility] EMERGENCY RECORD FINDINGS: Comparison 08/19/12. The cardiac silhouette remains enlarged. Patchy parenchymal opacity at the left lung base cannot be excluded. No pleural fluid or pneumothorax evident. IMPRESSION: 1. Cardiomegaly. 2. Possible patchy airspace disease at the left lung base. Please correlate with concerns for pneu monia. Followup is recommended. POS: [facility] . (19:08 LHOD) CT Brain WO Con Observe DT: MonMay 11, 2016 17:17, BR CT BRAIN 05/11/16 PROVIDED CLINICAL HISTORY: Altered mental status. FINDINGS: Comparison 11/10/15. The ventricular system appears normal in size and morphology. There is no evidence for intracranial hemorrhage, or mass effect. The extracranial soft tissues and osseous structures demonstrate an unre markable CT appearance. IMPRESSION: No evidence for intracranial hemorrhage or mass effect. POS: [facility] . (19:08 LHOD) XR Chest 1 View Portable Observe DT: MonMay 11, 2016 17:20, CXRP PORTABLE CHEST: DATE: 05/11/16. PROVIDED CLINICAL HISTORY: Altered mental status. FINDINGS: Comparison 08/19/12. The cardiac silhouette remains enlarged. Patchy parenchymal opacity &a-1R&a+25V*p+0X*g4796H*c202B*c15G*c2P*p-0X&a-25V&a+1R Name: Eli Newman : 1940 F76 MedRec: [id number] AcctNum: [id number] Prepared: MonMay 11, 2016 20:15 by Interface Page 12 of 16 pMD [facility] EMERGENCY RECORD at the left lung base cannot be excluded. No pleural fluid or pneumothorax evident. IMPRESSION: 1. Cardiomegaly. 2. Possible patchy airspace disease at the left lung base. Please correlate with concerns for pneu monia. Followup is recommended. POS: [facility] . (19:08 LHOD) LABORATORY: [facility] Collection DT: MonMay 11, 2016 18:13, *[facility] 114 - H mg/dL, Range (70-110). (19:08 LHOD) [facility] Collection DT: MonMay 11, 2016 18:13, *[place] 114 - H mg/dL, Range (70-110). (19:08 LHOD) Urinalysis w/ Rflx Microscopic Collection DT: MonMay 11, 2016 19:11, Color Yellow , Range (Yellow), Clarity Clear , Range (Clear), Specific [place], Urine 1.025 , Range (1.005-1.030), pH, Urine 6.5 , Range (5.0-9.0), Leukocyte Negative , Range (Negative), Nitrite Negative , Range (Negative), Protein, Urine (Dipstick) Negative mg/dL, Range (Neg-Trace), Glucose, Urine (Dipstick) Negative mg/dL, Range (Negative), *Ketone, Urine Trace - H mg/dL, Range (Negative), Urobilinogen 0.2 mg/dL, Range (0.2-1.0), Bilirubin Negative , Range (Negative), Blood, Urine Negative , Range (Negative). (19:16 LHOD) Drug Screen, Urine Collection DT: MonMay 11, 2016 19:11, THC/Cannabinoid Screen Not Detected , Range (NotDetected), Phencyclidine (PCP) Not Detected , Range (NotDetected), Cocaine Metabolite Screen Not Detected , Range (NotDetected), Methamphetamine Not Detected , Range (NotDetected), Opiate Screen Not Detected , Range (NotDetected), Amphetamine Not Detected , Range (NotDetected), Benzodiazepine Screen Not Detected , Range (NotDetected), *Tricyclic Screen Detected - H , Range (NotDetected), Methadone Not Detected , Range (NotDetected), Barbiturates Screen Not Detected , Range (NotDetected), Oxycodone Screen Not Detected , Range (NotDetected), Propoxyphene Screen Not Detected , Range (NotDetected), Drug Screen Cutoff , Range (), The [employer] Profile-V Panel for Qualitative Drugs of Abuse assays are for, presumptive screening testing only. The drug class and detection limits, are as follows: Drug Class Detection Limit Amphetamine , 500 ng/mL* Barbiturates 200 ng/mL , Benzodiazepines 150 ng/mL* &a-1R&a+25V*p+0X*j8469Z*c202B*c15G*c2P*p-0X&a-25V&a+1R Name: Eli Newman : 1940 F76 MedRec: [id number] AcctNum: [id number] Prepared: MonMay 11, 2016 20:15 by Interface Page 13 of 16 pMD [facility] EMERGENCY RECORD Cocaine 150 ng/mL*, Methamphetamine 500 ng/mL* Methadone 200, ng/mL* Opiates 100 ng/mL* Oxycodone , 100 ng/mL PCP 25 ng/mL Propoxyphene , 300 ng/mL Tricyclic Antidepressants 300 ng/mL Cannabinoids (THC) , 50 ng/mL Tests which yield a presumptive positive result must be , tested using a more specific alternate chemical method in order to obtain, a confirmed analytical result. Additional confirmation and identification, may be ordered on a routine basis, if desired. Presumptive positive urines, are held for two weeks. . (19:29 OD) CBC with Differential Collection DT: MonMay 11, 2016 18:06, White Blood Cell (WBC) Count 7.4 thou/uL, Range (4.8-10.8), Red Blood Cell (RBC) Count 4.31 mill/uL, Range (4.20-5.40), Hemoglobin 12.6 g/dL, Range (12.0-16.0), Hematocrit 39.4 %, Range (36.0-47.0), Mean Corpuscular Volume 91.3 fL, Range (81.0-99.0), Mean Corpuscular Hemoglobin 29.3 pg, Range (27.0-31.0), Mean Corpuscular HGB CONC 32.1 g/dL, Range (32.0-36.0), RBC Distribution Width 13.6 %, Range (11.5-14.5), Platelet Count 279 thou/uL, Range (130-400), Mean Platelet Volume 7.9 fL, Range (7.4-10.4), %Neutrophils 56.9 %, Range (42.0-75.0), %Lymphocytes 26.6 %, Range (21.0-51.0), %Monocytes 8.6 %, Range (0.0-10.0), %Eosinophils 6.8 %, Range (0.0-10.0), %Basophils 1.0 %, Range (0.0-1.0), #Neutrophils 4.2 thou/uL, Range (1.40-6.50), #Lymphocytes 2.0 thou/uL, Range (1.20-3.40), *#Monocytes 0.6 - H thou/uL, Range (0.11-0.59), #Eosinphils 0.5 thou/uL, Range (0.0-0.7), #Basophils 0.1 thou/uL, Range (0.0-0.2). (20:04 LHOD) Alcohol Collection DT: MonMay 11, 2016 18:06, Alcohol Less than 10 mg/dL, Range (Less than 10), The pharmacological response to blood alcohol levels may vary from, individual to individual. Negative: Less than 10, mg/dL Toxic: 50 - 100 mg/dL , Depression of [employer]: Greater than 100 mg/dL &a-1R&a+25V*p+0X*s6128N*c202B*c15G*c2P*p-0X&a-25V&a+1R Name: Eli Newman : 1940 F76 MedRec: [id number] AcctNum: [id number] Prepared: MonMay 11, 2016 20:15 by Interface Page 14 of 16 pMD [facility] EMERGENCY RECORD , Fatalities reported: Greater than 400 mg/dL . (20:04 OD) Acetaminophen Collection DT: MonMay 11, 2016 18:06, *Acetaminophen Less than 3.0 - L mcg/mL, Range (10.0-30.0), Therapeutic Range: 10.0 - 30.0 ug/mL Toxic Range: Possible, toxicity: 150 - 200 ug/mL Probable toxicity: Greater than 200, ug/mL *IMPORTANT TESTING INFORMATION* The half-life of NAC is 2, hours. The total NAC clearance is 5.6 hours for adults and 11 hours for, Newborns. Testing acetaminophen levels prior to a reasonable time frame, for clearance can cause falsely decreased acetaminophen levels. . (20:04 LHOD) Comprehensive Metabolic Panel Collection DT: MonMay 11, 2016 18:06, *Sodium 146 - H mmol/L, Range (136-145), Potassium 3.5 mmol/L, Range (3.5-5.1), Chloride 107 mmol/L, Range (98-107), Carbon Dioxide 23 mmol/L, Range (23-31), Anion Gap 19 mmol/L, Range (10-20), BUN (Urea Nitrogen) 18 mg/dL, Range (9.8-20.1), Creatinine 1.03 mg/dL, Range (0.6-1.1), Estimated GFR-MDRD 52 , Reference Range for Estimated GFR: Greater than 90, mL/min/1.73 m2 NOTE: The MDRD equation has not been validated for use, with the elderly (over 70 years of age), women, patients with, serious comorbid condition or persons with extremes of body size, muscle, mass, or nutritional status. , *Glucose 127 - H mg/dL, Range (83-110), Calcium 9.7 mg/dL, Range (7.8-10.44), Bilirubin, Total 0.3 mg/dL, Range (0.2-1.2), Protein, Total 6.3 g/dL, Range (5.8-8.1), NOTE: Plasma values are generally 0.3 to 0.5 g/dL higher than serum values, due to the presence of fibrinogen. , Albumin 3.8 g/dL, Range (3.4-4.8), Globulin 2.5 g/dL, Range (2.4-3.5), Alb/Glob Ratio 1.5 g/dL, Range (1.2-2.2), Alkaline Phosphatase 68 U/L, Range (40-150), AST (SGOT) 20 U/L, Range (5-34), ALT (SGPT) 10 U/L, Range (0-55). (20:04 LHOD) Cardiac Profile w/CKMB & TropI Collection DT: MonMay 11, 2016 18:06, CKMB 2.3 ng/mL, Range (0-6.6), Troponin I Less than 0.010 ng/mL, Range (< 0.028). (20:04 LHOD) Protime with INR & PTT Profile Collection DT: MonMay 11, 2016 18:07, Prothrombin Time 12.3 SEC, Range (12.0-14.7), INR-International Normal Ratio 0.9 , ATTENTION: READ &a-1R&a+25V*p+0X*a6184R*c202B*c15G*c2P*p-0X&a-25V&a+1R Name: Eli Newman : 1940 F76 MedRec: [id number] AcctNum: [id number] Prepared: MonMay 11, 2016 20:15 by Interface Page 15 of 16 pMD [facility] EMERGENCY RECORD CAREFULLY , The, recommended therapeutic ranges for oral anticoagulant treatments are: , , Low Intensity: 1.5 - 2.0 Moderate Intensity: 2.0, - 3.0 High Intensity (1): 2.5 - 3.5 High, Intensity (2): 3.0 - 4.0 CRITICAL: >, 4.0 , PTT 29.8 SEC, Range (22.9-36.1). (20:04 LHOD) Keith: SPEEDY=SHARON Manning, Kari FERNANDEZ=SHARON Gaines, Sharita LHOD=MD Desiree, Harley &a-1R&a+25V*p+0X*t5263T*c202B*c15G*c2P*p-0X&a-25V&a+1R Name: Eli Newman : 1940 F76 MedRec: [id number] AcctNum: [id number] Prepared: MonMay 11, 2016 20:15 by Interface Page 16 of 16 pMD MTDD
--- NOTE | 2016-05-11 20:25 | PICIS ---
[facility] EMERGENCY RECORD TRIAGE (MonMay 11, 2016 16:47 CJEF) TRIAGE NOTES: PT REPORTS "I DONT KNOW" WHEN INITIALLY ASKED WHAT WAS GOING ON. PT REPORTS THAT SHE HAD A NIGHTMARE THIS MORNING THAT "SEEMED SO REAL, I THOUGH HE WAS ". THE PT'S IS CURRENTLY HERE ADMITTED IN THE HOSPTIAL. FRIEND [facility] PT STATES THAT THE PT HAD A CONFUSED EPISODE AND THOUGHT THE WAS AT HOME. THE PT'S FRIEND IS HESITANT TO SAY MUCH IN TRIAGE DUE TO PT WITHIN HEARING RANGE. WILL ASK HER MORE INFO WHEN PT IS IN ROOM. PT REPORTS HEADACHE AND SLIGHT PAIN TO CHEEK THAT SHE STATES IS FROM SINUS ISSUES. WHEN PT ALONE, PT STATES THAT SHE WAS SENT HERE FOR THE CONFUSED EPISODE, THOUGH SHE WILL NOT STATE ANY THING MORE. PT'S FRIEND PULLED ASIDE. FRIEND STATES THAT OVER LAST COUPLE MONTHS, THE PT HAS BEEN VERY CONFUSED, WORSE SINCE THE PT HAS BEEN ADMITTED IN THIS HOSPITAL. PT LOSES HER CAR, DRIVES RECKLESSLY BY WEAVING ALL ON THE ROAD, SEES PEOPLE IN HER HOUSE, AND HALLUCINATING. (MonMay 11, 2016 16:47 CJEF) PATIENT: NAME: Eli Newman, AGE: 76, GENDER: female, : Sun 1940, TIME OF GREET: MonMay 11, 2016 16:37, PREFERRED LANGUAGE: Djib[place]ian, ETHNICITY: Not or , ECODE BILLING MAP: [facility], SSN: [id number], Zip Code: [address], KG WEIGHT: 55.34, PHONE: , , , PERSON ID: [id number], PCP: Loretta SILVER KERRY. (MonMay 11, 2016 16:47 CJEF) COMPLAINT: CONFUSION. (MonMay 11, 2016 16:47 CJEF) ADMISSION: URGENCY: 3 Urgent, ADMISSION SOURCE: Home, TRANSPORT: Walk-in, BED: ED -02. (MonMay 11, 2016 16:47 CJEF) ASSESSMENT: Assessment: CONFUSION. (16:54 CJEF) PAIN: Patient complains of pain described as, Location HEAD AND LEFT CHEEK. (16:54 CJEF) IMMUNIZATIONS: Flu vaccine not up to date, Tetanus not up to date, Pneumococcal vaccine not up to date. (16:54 CJEF) SIRS SCORING: Heart Rate 55-109 (0), Temp range 96.8-101.1 (0), respiratory rate 12-24 (0), Mental status altered: yes (1), Total SIRS Score 1. (16:54 CJEF) TRIAGE SCREENING: Patient denies suicidal ideation, Patient denies presence of domestic violence. (16:54 CJEF) PROVIDERS: TRIAGE NURSE: Kari Manning RN. (MonMay 11, 2016 16:47 CJEF) VITAL SIGNS: BP 148/59, Pulse 74, Resp 18, Temp 98.2, (Tympanic), Pain 0, O2 Sat 100, on Room Air, Time 05/11/2016 16:42. (16:42 CJEF) PREVIOUS VISIT ALLERGIES: No Known Drug Allergies. (MonMay 11, 2016 16:47 CJEF) No Known Drug Allergies. (16:54 CJEF) KNOWN ALLERGIES No Known Allergies (Unconfirmed) No Known Drug Allergies CURRENT MEDICATIONS (16:51 CJEF) &a-1R&a+25V*p+0X*g6257Q*c202B*c15G*c2P*p-0X&a-25V&a+1R Name: Eli Newman : 1940 F76 MedRec: [id number] AcctNum: [id number] Prepared: MonMay 11, 2016 20:15 by Interface Page 1 of 16 pMD [facility] EMERGENCY RECORD Aricept: TABLET : Strength - 5 mg : ORAL Patient Dose: 1 tab(s) Oral once a day. carvedilol: TABLET : Strength - 6.25 mg : ORAL Patient Dose: 25 tab(s) Oral 2 times a day. cloNIDine HCl: TABLET : Strength - 0.1 mg : ORAL Patient Dose: 1 mg Oral once a day. gabapentin: TABLET : Strength - 300 mg : ORAL Patient Dose: 2 cap(s) Oral 3 times a day. hydrochlorothiazide: TABLET : Strength - 25 mg : ORAL Patient Dose: 1 tab(s) Oral once a day. Lexapro: TABLET : Strength - 20 mg : ORAL Patient Dose: 1 null Oral once a day. losartan: TABLET : Strength - 50 mg : ORAL Patient Dose: 2 tab(s) Oral once a day. SEROquel: TABLET : Strength - 300 mg : ORAL Patient Dose: 50 mg Oral. verapamil: CAPSULE, EXTENDED RELEASE PELLETS 24 HR : Strength - 180 mg : ORAL Patient Dose: 1 tab(s) Oral once a day. VITAL SIGNS VITAL SIGNS: BP: 148/59, Pulse: 74, Resp: 18, Temp: 98.2 (Tympanic), Pain: 0, O2 sat: 100 on Room Air, Time: 05/11/2016 16:42. (16:42 CJEF) BP: 143/67, Pulse: 74, Resp: 17, O2 sat: 100 on Room Air, Time: 05/11/2016 17:06. (17:06 CJEF) BP: 143/65, Pulse: 71, Resp: 18, Pain: 0, O2 sat: 99 on Room Air, Time: 05/11/2016 17:35. (17:35 CJEF) BP: 130/49, Pulse: 72, Resp: 20, Pain: 0, O2 sat: 99 on Room Air, Time: 05/11/2016 18:02. (18:02 CJEF) BP: 129/56, Pulse: 70, Resp: 16, Pain: 9, O2 sat: 99 on Room Air, Time: 05/11/2016 18:26. (18:26 CJEF) BP: 131/54, Pulse: 70, Resp: 18, O2 sat: 100 on Room Air, Time: 05/11/2016 18:44. (18:44 CJEF) BP: 148/65, Pulse: 70, Resp: 18, Temp: 98.5 (Tympanic), Pain: 5, O2 sat: 98 on Room Air, Time: 05/11/2016 19:15. (19:15 CJEF) NURSING ASSESSMENT: FALL RISK (16:57 CJEF) FALL RISK: Fall risk assessment findings include: History of falls (5), No bed rest greater than 2 days (0), No use of level of consciousness altering agents with mentation or cognitive changes (0), No change in blood pressure (0), Sensory deficits (1), &a-1R&a+25V*p+0X*z1197N*c202B*c15G*c2P*p-0X&a-25V&a+1R Name: Eli Newman : 1940 F76 MedRec: [id number] AcctNum: [id number] Prepared: MonMay 11, 2016 20:15 by Interface Page 2 of 16 pMD [facility] EMERGENCY RECORD Impaired mobility (3), Neurologic diagnosis (3), No elimination problems (0), Confusion (3), Total score 15, Fall risk. HENDRICH II FALL RISK: Hendrich II Fall Risk assessment findings include patient confused, disoriented or impulsive(4), not symptomatic or depressed, no altered elimination, no dizziness or vertigo, female, no antiepileptics (anticonvulsants) administered, no Benzodiazepines administered, Multiple attempts, but successful(3), Total score 7, Score greater than 5. Patient is at high risk for fall. Fall risk precautions initiated. NURSING ASSESSMENT: NEURO (16:54 [facility]) GCS: (6) Obeying command:, (4) Confused conversation:, (4) Spontaneous eye opening., Result: 14. CONSTITUTIONAL: Complex assessment performed, Patient arrives ambulatory, Gait steady, History obtained from, friend: ROYA BAI, Patient appears comfortable, Patient cooperative, Patient alert, Patient is, oriented to person, oriented to place, disoriented, confused, Skin warm, Skin dry, Skin normal in color, Mucous membranes pink, Mucous membranes moist, Patient is well-groomed, PT REPORTS "I DONT KNOW" WHEN INITIALLY ASKED WHAT WAS GOING ON. PT REPORTS THAT SHE HAD A NIGHTMARE THIS MORNING THAT "SEEMED SO REAL, I THOUGH HE WAS ". THE PT'S IS CURRENTLY HERE ADMITTED IN THE HOSPTIAL. FRIEND [facility] PT STATES THAT THE PT HAD A CONFUSED EPISODE AND THOUGHT THE WAS AT HOME. THE PT'S FRIEND IS HESITANT TO SAY MUCH IN TRIAGE DUE TO PT WITHIN HEARING RANGE. WILL ASK HER MORE INFO WHEN PT IS IN ROOM. PT REPORTS HEADACHE AND SLIGHT PAIN TO CHEEK THAT SHE STATES IS FROM SINUS ISSUES. WHEN PT ALONE, PT STATES THAT SHE WAS SENT HERE FOR THE CONFUSED EPISODE, THOUGH SHE WILL NOT STATE ANY THING MORE. PT'S FRIEND PULLED ASIDE. FRIEND STATES THAT OVER LAST COUPLE MONTHS, THE PT HAS BEEN VERY CONFUSED, WORSE SINCE THE PT HAS BEEN ADMITTED IN THIS HOSPITAL. PT LOSES HER CAR, DRIVES RECKLESSLY BY WEAVING ALL ON THE ROAD, SEES PEOPLE IN HER HOUSE, AND HALLUCINATING. PT ORIENTED TO SELF AND PLACE, UNABLE TO TELL THE TIME OR EVENT. PAIN: aching pain, HEAD AND LEFT CHEEK, on a scale 0-10 patient rates pain as 7. NEURO: Pupils equally round and reactive to light, Able to close eyes, Face symmetrical, Speech normal, Hand grasps equal, Upper extremity strength strong, Lower extremity strength strong, Associated with dizziness described as, feeling unsteady, no associated nausea, no associated syncopal episode, no associated vomiting, Associated with weakness, GENERALIZED. ENT: Ear assessment findings include ear normal to inspection, Nasal assessment findings include nose normal to inspection, Mouth and throat assessment findings include mouth inspection normal. NOTES: Patient tolerated procedure well. SAFETY: Side rails up, Cart/Stretcher in lowest position, Family &a-1R&a+25V*p+0X*v8357S*c202B*c15G*c2P*p-0X&a-25V&a+1R Name: Eli Newman : 1940 F76 MedRec: [id number] AcctNum: [id number] Prepared: MonMay 11, 2016 20:15 by Interface Page 3 of 16 pMD [facility] EMERGENCY RECORD at bedside, Call light within reach, Hospital ID band on. NURSING ASSESSMENT: SKIN (16:58 [facility]) SKIN: Skin assessment findings include skin warm, Skin dry, Skin normal in color. STEPHEN SCALE: (3) Sensory perception slightly limited, (3) Skin is occasionally moist, (3) Patient walks occasionally, (3) Slightly limited mobility, (3) Adequate nutrition, (3) Patient has no apparent problem moving, Stephen Risk Total: 18. NOTES: Patient tolerated procedure well. SAFETY: Side rails up, Cart/Stretcher in lowest position, Family at bedside, Call light within reach, Hospital ID band on. NURSING PROCEDURE: BEDSIDE RADIOLOGY (17:23 [facility]) PATIENT IDENTIFIER: Patient actively involved in identification process, Patient's identity verified by patient stating name, Patient's identity verified by patient stating date. BEDSIDE RADIOLOGY: Portable chest x-ray performed. NOTES: Patient tolerated procedure well. SAFETY: Side rails up, Cart/Stretcher in lowest position, Family at bedside, Call light within reach, Hospital ID band on. NURSING PROCEDURE: BEDSIDE TESTING (18:08 [facility]) PATIENT IDENTIFIER: Patient's identity verified by patient stating name, Patient's identity verified by hospital ID bracelet. GLUCOSE: Glucose testing indicated for mental status changes, Capillary blood sample, Result (mg/dl) 114, Machine number ED. FOLLOW-UP: After procedure, results given to Dr. RAMÍREZ. NURSING PROCEDURE: CLOTHING PATTERN PREPARER (17:04 CJ) PATIENT IDENTIFIER: Patient actively involved in identification process, Patient's identity verified by patient stating name, Patient's identity verified by patient stating date. CLOTHING PATTERN PREPARER: Cardiac monitoring indicated for mental status changes, Patient placed on cardiac exercise physiologist, Heart rate: 70, showing normal sinus rhythm, Patient placed on non-invasive blood pressure monitor, Patient placed on continuous pulse oximetry, Adult/pediatric oxisensor applied. FOLLOW-UP: After procedure, alarms set and on, After procedure, patient tolerating monitoring. NOTES: Patient tolerated procedure well. SAFETY: Side rails up, Cart/Stretcher in lowest position, Family at bedside, Call light within reach, Hospital ID band on. NURSING PROCEDURE: DISCHARGE NOTE (19:15 CJ) DISCHARGE: Patient discharged to home, in a wheelchair, friend driving, accompanied by friend, Summary of Care printed/ provided, Patient requested and was provided an electronic copy of Discharge Instructions, Transition record given to patient, Discharge &a-1R&a+25V*p+0X*c0248F*c202B*c15G*c2P*p-0X&a-25V&a+1R Name: Eli Newman : 1940 F76 MedRec: [id number] AcctNum: [id number] Prepared: MonMay 11, 2016 20:15 by Interface Page 4 of 16 pMD [facility] EMERGENCY RECORD instructions given to patient, Simple or moderate discharge teaching performed, Above person(s) verbalized understanding of discharge instructions and follow-up care, Patient treated and evaluated by physician. BELONGINGS: Belongings remain with patient. NOTES: Patient tolerated procedure well. SAFETY: Side rails up, Cart/Stretcher in lowest position, Family at bedside, Call light within reach, Hospital ID band on. NURSING PROCEDURE: EKG CHART (17:20 CJ) PATIENT IDENTIFIER: Patient actively involved in identification process, Patient's identity verified by patient stating name, Patient's identity verified by patient stating date. EKG: EKG indicated for AMS, 12 lead EKG performed on the left chest, first EKG. FOLLOW-UP: After procedure, EKG for interpretation given to Dr. RAMÍREZ. NOTES: Patient tolerated procedure well. SAFETY: Side rails up, Cart/Stretcher in lowest position, Family at bedside, Call light within reach, Hospital ID band on. NURSING PROCEDURE: IV PATIENT IDENITIFIER: Patient's identity verified by patient stating name, Patient's identity verified by hospital ID bracelet. (18:09 JPER) Patient actively involved in identification process, Patient's identity verified by patient stating name, Patient's identity verified by patient stating date. (19:15 CJEF) IV SITE 1: IV therapy indicated for hydration, IV therapy indicated for medication administration, IV established, to the left antecubital, using a 22 gauge catheter, in one attempt, IV site prepped with CHLOROPREP, Saline lock established, Labs drawn at time of placement, labeled in the presence of the patient and sent to lab. (18:09 JPER) FOLLOW-UP SITE 1: After procedure, sterile transparent dressing applied. (18:09 JPER) After procedure, 2x2 dressing applied, IV discontinued, due to patient being discharged, catheter intact. (19:15 CJEF) NOTES: Emotional support needed and given. (18:09 JPER) Patient tolerated procedure well. (19:15 CJEF) SAFETY: Side rails up, Cart/Stretcher in lowest position, Family at bedside, Call light within reach, Hospital ID band on. (19:15 CJEF) NURSING PROCEDURE: NURSE NOTES NURSES NOTES: Patient in no apparent distress, Patient resting quietly, Notes: ER MD AT BEDSIDE. (17:05 CJEF) Patient in no apparent distress, Patient resting quietly, Notes: PT RESTING IN BED QUIETLY WITH FAMILY AT BEDSIDE. NO DISTRESS NOTED. (17:35 CJEF) &a-1R&a+25V*p+0X*j1627O*c202B*c15G*c2P*p-0X&a-25V&a+1R Name: Eli Newman : 1940 F76 MedRec: [id number] AcctNum: [id number] Prepared: MonMay 11, 2016 20:15 by Interface Page 5 of 16 pMD [facility] EMERGENCY RECORD Patient in no apparent distress, Patient resting quietly, Notes: PT RESTING IN BED QUIETLY WITH FAMILY AT BEDSIDE. NO DISTRESS NOTED. (18:23 CJEF) Patient in no apparent distress, Patient resting quietly, Notes: PT RESTING IN BED QUIETLY WITH FAMILY AT BEDSIDE. NO DISTRESS NOTED. PT ASSISTED TO BSC. (19:00 CJEF) Notes: PT DISCHARGED AT 1920. (19:20 CJEF) NURSING PROCEDURE: TRANSPORT TO TESTS PATIENT IDENTIFIER: Patient actively involved in identification process, Patient's identity verified by patient stating name, Patient's identity verified by patient stating date. (17:45 CJEF) TRANSPORT TO TESTS: Transport indicated to facilitate diagnosis, Patient transported to CT scan, via cart, Accompanied by x-ray avionics electronics technician. (17:45 CJEF) FOLLOW-UP: After procedure, patient returned to emergency department. (17:55 CJEF) NOTES: Patient tolerated procedure well. (17:45 CJEF) SAFETY: Side rails up, Cart/Stretcher in lowest position, Family at bedside, Call light within reach, Hospital ID band on. (17:45 CJEF) NURSING PROCEDURE: URINE COLLECTION (19:00 CJEF) PATIENT IDENTIFIER: Patient actively involved in identification process, Patient's identity verified by patient stating name, Patient's identity verified by patient stating date. URINE COLLECTION FEMALE: Urine collected by mid-stream clean catch, urine yellow in color, and clear. NOTES: Patient tolerated procedure well. SAFETY: Side rails up, Cart/Stretcher in lowest position, Family at bedside, Call light within reach, Hospital ID band on. ORDER DETAILS Order Name: Accucheck, Status: Done, Time: 18:08 05/11/2016, User: REBECCA, - Ordered for: MD Ramírez Lefayne, - Entered by: MD Ramírez Lefayne - MonMay 11, 2016 17:16, - Quantity: 1, Order Name: Acetaminophen, Status: Active, Time: 17:16 05/11/2016, User: STEPHAN, - Ordered for: MD Ramírez Lefayne, - Entered by: MD Ramírez Lefayne - MonMay 11, 2016 17:16, - Quantity: 1, Order Name: Alcohol, Status: Active, Time: 17:16 05/11/2016, User: STEPHAN, - Ordered for: MD Ramírez Lefayne, - Entered by: MD Ramírez Lefayne - MonMay 11, 2016 17:16, - Quantity: 1, &a-1R&a+25V*p+0X*i5894D*c202B*c15G*c2P*p-0X&a-25V&a+1R Name: Eli Newman : 1940 F76 MedRec: [id number] AcctNum: [id number] Prepared: MonMay 11, 2016 20:15 by Interface Page 6 of 16 pMD [facility] EMERGENCY RECORD Order Name: CLOTHING PATTERN PREPARER ED, Status: Done, Time: 17:42 05/11/2016, User: SPEEDY, - Ordered for: MD Ramírez Lefayne, - Entered by: MD Ramírez Lefayne - MonMay 11, 2016 17:15, - Quantity: 1, Order Name: Cardiac Profile w/CKMB & Troponin - I, Status: Active, Time: 17:15 05/11/2016, User: STEPHAN, - Ordered for: MD Ramírez Lefayne, - Entered by: MD Ramírez Lefayne - MonMay 11, 2016 17:15, - Quantity: 1, Order Name: CBC with Differential, Status: Active, Time: 17:15 05/11/2016, User: STEPHAN, - Ordered for: MD Ramírez Lefayne, - Entered by: MD Ramírez Lefayne - MonMay 11, 2016 17:15, - Quantity: 1, Order Name: Comprehensive Metabolic Panel, Status: Active, Time: 17:15 05/11/2016, User: STEPHAN, - Ordered for: MD Ramírez Lefayne, - Entered by: MD Ramírez Lefayne - MonMay 11, 2016 17:15, - Quantity: 1, Order Name: CT Brain WO Con, Status: Active, Time: 17:15 05/11/2016, User: STEPHAN, - Ordered for: MD Ramírez Lefayne, - Entered by: MD Ramírez Lefayne - MonMay 11, 2016 17:15, - Quantity: 1, Order Name: Drug Screen, Urine, Status: Active, Time: 17:16 05/11/2016, User: STEPHAN, - Ordered for: MD Ramírez Lefayne, - Entered by: MD Ramírez Lefayne - MonMay 11, 2016 17:16, - Quantity: 1, Order Name: EKG 12 Lead in Emergency Room, Status: Active, Time: 17:15 05/11/2016, User: STEPHAN, - Ordered for: MD Ramírez Lefayne, - Entered by: MD Ramírez Lefayne - MonMay 11, 2016 17:15, - Quantity: 1, Order Name: SALINE LOCK, Status: Done, Time: 18:08 05/11/2016, User: REBECCA, - Ordered for: MD Ramírez Lefayne, - Entered by: MD Ramírez Lefayne - MonMay 11, 2016 17:15, - Quantity: 1, Order Name: Urinalysis w/ Rflx Microscopic, Status: Active, Time: 17:16 05/11/2016, User: STEPHAN, - Ordered for: MD Ramírez Lefayne, - Entered by: MD Ramírez Lefayne - MonMay 11, 2016 17:16, - Quantity: 1, Order Name: XR Chest 1 View Portable, Status: Active, Time: 17:15 05/11/2016, User: STEPHAN, - Ordered for: MD Ramírez Lefayne, - Entered by: MD Ramírez Lefayne - MonMay 11, 2016 17:15, - Quantity: 1. &a-1R&a+25V*p+0X*w2097Q*c202B*c15G*c2P*p-0X&a-25V&a+1R Name: Eli Newman : 1940 F76 MedRec: [id number] AcctNum: [id number] Prepared: MonMay 11, 2016 20:15 by Interface Page 7 of 16 pMD [facility] EMERGENCY RECORD MEDICATION ADMINISTRATION SUMMARY Drug Name: *acetaminophen oral, Dose Ordered: 650 mg, Route: Oral, Status: Given, Time: 18:35 05/11/2016, *Additional information available in notes, Detailed record available in Medication Service section. MEDICATION SERVICE acetaminophen oral: Order: acetaminophen oral (acetaminophen) - Dose: 650 mg : Oral Schedule: Now Notes: Read back and verified, Verbal Order Ordered by: Harley Ramírez MD Entered by: Kari Manning RN MonMay 11, 2016 19:07 Documented as given by: Kari Manning RN MonMay 11, 2016 18:35 Patient, Medication, Dose, Route and Time verified prior to administration. Amount given: 650MG, Site: Medication administered P.O., Mouth check performed after administration of medication, Patient appears Awake and alert- acceptable, Correct patient, time, route, dose and medication confirmed prior to administration, Patient advised of actions and side-effects prior to administration, Allergies confirmed and medications reviewed prior to administration, Patient tolerated procedure well, Patient in position of comfort, Side rails up, Cart in lowest position, Family at bedside. : Follow Up : Response assessment performed, No signs or symptoms of allergic reaction noted, Decreased pain, Advised not to ambulate without assistance, Patient in position of comfort, Side rails up, Cart in lowest position, Family at bedside. (19:15 CJEF) HPI MENTAL STATUS CHANGES (18:02 LHOD) CHIEF COMPLAINT: Patient presents for evaluation of confusion. HISTORIAN: History provided by patient, History provided by patient's caregiver, FRIEND. TIME COURSE: PT HAS HX OF DEMENTIA, BUT FOR PAST FEW WEEKS MORE CONFUSED. 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 FRIENDS DO NOT KNOW IF PT TAKING HER MEDICATION. SHE HAS BEEN INCREASINGLY CONFUSED AND TODAY HALLUCINATED THAT HER WAS IN THE HOUSE . PT ALSO REPORTS SHE TALKED TO EMS AT HER HOUSE, BUT FRIEND REPORTS AMBULANCE WAS NEVER CALLED. ROS (18:07 LHOD) CONSTITUTIONAL: Historian denies fever. CARDIOVASCULAR: Historian denies chest pain, reports edema. SOME SWELLING OF LEFT LEG. RESPIRATORY: Historian denies cough, denies shortness of breath. GI: Historian denies abdominal pain, denies nausea, denies vomiting. &a-1R&a+25V*p+0X*i3609D*c202B*c15G*c2P*p-0X&a-25V&a+1R Name: Eli Newman : 1940 F76 MedRec: [id number] AcctNum: [id number] Prepared: MonMay 11, 2016 20:15 by Interface Page 8 of 16 pMD [facility] EMERGENCY RECORD GENITOURINARY FEMALE: Historian denies dysuria. MUSCULOSKELETAL: Historian denies back pain, denies neck pain. SKIN: Historian denies rash. NEUROLOGIC: Historian reports confusion. HEMO/LYMPHATIC: Historian denies easy bruising. PSYCHIATRIC: Historian denies alcohol abuse. NOTES: All systems reviewed, negative except as described above. PAST MEDICAL HISTORY MEDICAL HISTORY: Flu vaccine not up to date, Tetanus not up to date, Pneumococcal vaccine not up to date, Past medical history includes history of hypertension, which has been treated, Patient is compliant. Past medical history includes history of hypertension. Verified 11/10/15. (16:54 CJEF) FEMALE SURGICAL HISTORY: Sinus sx,, Surgical history of hysterectomy, Surgical history of mastectomy, of both breasts. (16:54 CJEF) PSYCHIATRIC HISTORY: No previous psychiatric history. (16:54 CJEF) SOCIAL HISTORY: Patient denies alcohol use, Patient denies drug use, Patient has no smoking history, Lives at home, with family, Patient has pets. (16:54 CJEF) NOTES: Nursing records reviewed, HX OF DEMENTIA. GENERALLY CARED FOR BY HER , BUT HE HAS BEEN IN HOSPITAL HERE FOR A COUPLE OF WEEKS WITH ARM FRACTURE AND REHAB. FRIENDS DO NOT KNOW IF PT HAS TAKEN ANY OF HER MEDICATION, OR HOW OFTEN. (20:01 LHOD) PHYSICAL EXAM (18:09 LHOD) CONSTITUTIONAL: Vital Signs Reviewed, Patient afebrile, Pulse normal, Blood pressure normal, Respiratory rate normal, AWAKE, ALERT BUT ORIENTED TO PERSON ONLY. HEAD: SMALL AREAS OF POSSIBLE BRUISING OVER MALAR AREAS. EYES: Pupils equally round and reactive to light, Extraocular muscles intact. ENT: Pharynx exam normal. NECK: Neck exam included findings of normal range of motion, Trachea midline. RESPIRATORY CHEST: Respiratory exam included findings of no respiratory distress, Breath sounds clear. CARDIOVASCULAR: Cardiovascular exam included findings of heart rate regular rate and rhythm, Heart sounds normal. ABDOMEN FEMALE: Abdominal exam included findings of abdomen nontender. BACK: Back exam normal. UPPER EXTREMITY: Upper extremity exam normal. LOWER EXTREMITY: LEFT ANKLE WITH PITTING EDEMA. NO TENDERNESS OR REDNESS OF LEFT LEG. NEURO: AWAKE, ALERT BUT DEPRESSED APPEARING, STATING SHE &a-1R&a+25V*p+0X*l7765Q*c202B*c15G*c2P*p-0X&a-25V&a+1R Name: Eli Newman : 1940 F76 MedRec: [id number] AcctNum: [id number] Prepared: MonMay 11, 2016 20:15 by Interface Page 9 of 16 pMD [facility] EMERGENCY RECORD HAS PROBLEMS WITH HER MEMORY.. SKIN: NO RASH, POSSIBLE SMALL BRUISING OF BILATERAL MALAR . PSYCHIATRIC: Affect, anxious, ORIENTED TO SELF. LAB INTERPRETATION (20:04 LHOD) INTERPRETATION: I reviewed the lab results, CBC normal, Chemistry normal, Cardiac enzymes normal, Urinalysis normal, Urine toxicology, positive for tricyclics, Alcohol level negative, by blood level, Aspirin level therapeutic, Tylenol level therapeutic. EVENTS TRANSFER: Triage to Emergency Main ED -02. (MonMay 11, 2016 16:47 CJEF) Removed from Emergency Main ED -02. (19:38 CJEF) RADIOLOGYINTERPRETATION HEAD: Head CT negative, without contrast. (18:06 LHOD) CHEST: Chest films negative. (17:36 LHOD) EKG INTERPRETATION (17:33 LHOD) 12 LEAD EKG INTERPRETATION: 12 lead EKG interpreted by Emergency Department Physician at time of study, 12 lead EKG shows normal sinus rhythm, Rate (beats per minute): 72, with no ectopics, T waves, flattened, Areas affected: inferior leads, Areas affected: lateral leads, [place] normal. DOCTOR NOTES (20:09 LHOD) TEXT: COMPUTER WAS DOWN AT LEAST AN HOUR WHILE PT WAS IN ED, DELAYING CARE. FRIEND WAS HOPING PT MIGHT BE ADMITTED FOR OBSERVATION, BUT NO BEDS AVAILABLE HERE AND SHE HAS NO MEDICAL NECESSITY TO BE ADMITTED. FRIEND STATES SHE WILL TAKE PT TO SEE DR. SILVER TOMORROW. PROBLEM LIST No recorded problems DIAGNOSIS (19:08 LHOD) FINAL: PRIMARY: ALTERED MENTAL STATUS WITH DEMENTIA. DISPOSITION PATIENT: Disposition Type: Discharge, Disposition: *Discharge Home, Condition: Fair. (19:08 LHOD) Patient left the department. (19:38 CJEF) INSTRUCTION (19:09 LHOD) FOLLOWUP: Raghavendra SILVER., CLARITZA, Obstetrics and Gynecology, [address] [place] [id number], [id number], Follow up with Primary &a-1R&a+25V*p+0X*[id number]*c202B*c15G*c2P*p-0X&a-25V&a+1R Name: Eli Newman : 1940 F76 MedRec: [id number] AcctNum: [id number] Prepared: MonMay 11, 2016 20:15 by Interface Page 10 of 16 pMD [facility] EMERGENCY RECORD Care Physician as scheduled. SPECIAL: FRIEND WILL NEED TO MONITOR ALL MEDICATION. FOLLOW UP WITH DR. SILVER TOMORROW. Follow-up with your PCP. PRESCRIPTION No recorded prescriptions IMAGING *DISCHARGE INSTRUCTIONS RECEIPT: Image captured from scanner. (19:41 CJEF) *SUPPLY CHARGE SHEET: Image captured from scanner. (19:41 CJEF) *EKG: Image captured from scanner. (19:41 CJEF) DOWNTIME ORDERS: Image captured from scanner. (19:42 CJEF) ADMIN (20:11 LHOD) DIGITAL SIGNATURE: MD Desiree, Harley. RESULTS RADIOLOGY: CT Brain WO Con Observe DT: MonMay 11, 2016 17:17, BR CT BRAIN 05/11/16 PROVIDED CLINICAL HISTORY: Altered mental status. FINDINGS: Comparison 11/10/15. The ventricular system appears normal in size and morphology. There is no evidence for intracranial hemorrhage, or mass effect. The extracranial soft tissues and osseous structures demonstrate an unre markable CT appearance. IMPRESSION: No evidence for intracranial hemorrhage or mass effect. POS: [facility] . (19:08 LHOD) XR Chest 1 View Portable Observe DT: MonMay 11, 2016 17:20, CXRP PORTABLE CHEST: DATE: 05/11/16. PROVIDED CLINICAL HISTORY: Altered mental status. &a-1R&a+25V*p+0X*q7068V*c202B*c15G*c2P*p-0X&a-25V&a+1R Name: Eli Newman : 1940 F76 MedRec: [id number] AcctNum: [id number] Prepared: MonMay 11, 2016 20:15 by Interface Page 11 of 16 pMD [facility] EMERGENCY RECORD FINDINGS: Comparison 08/19/12. The cardiac silhouette remains enlarged. Patchy parenchymal opacity at the left lung base cannot be excluded. No pleural fluid or pneumothorax evident. IMPRESSION: 1. Cardiomegaly. 2. Possible patchy airspace disease at the left lung base. Please correlate with concerns for pneu monia. Followup is recommended. POS: [facility] . (19:08 LHOD) CT Brain WO Con Observe DT: MonMay 11, 2016 17:17, BR CT BRAIN 05/11/16 PROVIDED CLINICAL HISTORY: Altered mental status. FINDINGS: Comparison 11/10/15. The ventricular system appears normal in size and morphology. There is no evidence for intracranial hemorrhage, or mass effect. The extracranial soft tissues and osseous structures demonstrate an unre markable CT appearance. IMPRESSION: No evidence for intracranial hemorrhage or mass effect. POS: [facility] . (19:08 LHOD) XR Chest 1 View Portable Observe DT: MonMay 11, 2016 17:20, CXRP PORTABLE CHEST: DATE: 05/11/16. PROVIDED CLINICAL HISTORY: Altered mental status. FINDINGS: Comparison 08/19/12. The cardiac silhouette remains enlarged. Patchy parenchymal opacity &a-1R&a+25V*p+0X*g0725W*c202B*c15G*c2P*p-0X&a-25V&a+1R Name: Eli Newman : 1940 F76 MedRec: [id number] AcctNum: [id number] Prepared: MonMay 11, 2016 20:15 by Interface Page 12 of 16 pMD [facility] EM[facility]GENCY RECORD at the left lung base cannot be excluded. No pleural fluid or pneumothorax evident. IMPRESSION: 1. Cardiomegaly. 2. Possible patchy airspace disease at the left lung base. Please correlate with concerns for pneu monia. Followup is recommended. POS: [facility] . (19:08 LHOD) LABORATORY: [facility] Collection DT: MonMay 11, 2016 18:13, *[facility] 114 - H mg/dL, Range (70-110). (19:08 LHOD) [facility] Collection DT: MonMay 11, 2016 18:13, *[facility] 114 - H mg/dL, Range (70-110). (19:08 LHOD) Urinalysis w/ Rflx Microscopic Collection DT: MonMay 11, 2016 19:11, Color Yellow , Range (Yellow), Clarity Clear , Range (Clear), Specific [place], Urine 1.025 , Range (1.005-1.030), pH, Urine 6.5 , Range (5.0-9.0), Leukocyte Negative , Range (Negative), Nitrite Negative , Range (Negative), Protein, Urine (Dipstick) Negative mg/dL, Range (Neg-Trace), Glucose, Urine (Dipstick) Negative mg/dL, Range (Negative), *Ketone, Urine Trace - H mg/dL, Range (Negative), Urobilinogen 0.2 mg/dL, Range (0.2-1.0), Bilirubin Negative , Range (Negative), Blood, Urine Negative , Range (Negative). (19:16 LHOD) Drug Screen, Urine Collection DT: MonMay 11, 2016 19:11, THC/Cannabinoid Screen Not Detected , Range (NotDetected), Phencyclidine (PCP) Not Detected , Range (NotDetected), Cocaine Metabolite Screen Not Detected , Range (NotDetected), Methamphetamine Not Detected , Range (NotDetected), Opiate Screen Not Detected , Range (NotDetected), Amphetamine Not Detected , Range (NotDetected), Benzodiazepine Screen Not Detected , Range (NotDetected), *Tricyclic Screen Detected - H , Range (NotDetected), Methadone Not Detected , Range (NotDetected), Barbiturates Screen Not Detected , Range (NotDetected), Oxycodone Screen Not Detected , Range (NotDetected), Propoxyphene Screen Not Detected , Range (NotDetected), Drug Screen Cutoff , Range (), The [employer] Profile-V Panel for Qualitative Drugs of Abuse assays are for, presumptive screening testing only. The drug class and detection limits, are as follows: Drug Class Detection Limit Amphetamine , 500 ng/mL* Barbiturates 200 ng/mL , Benzodiazepines 150 ng/mL* &a-1R&a+25V*p+0X*o5503K*c202B*c15G*c2P*p-0X&a-25V&a+1R Name: Eli Newman : 1940 F76 MedRec: [id number] AcctNum: [id number] Prepared: MonMay 11, 2016 20:15 by Interface Page 13 of 16 pMD [facility] EM[facility] RECORD Cocaine 150 ng/mL*, Methamphetamine 500 ng/mL* Methadone 200, ng/mL* Opiates 100 ng/mL* Oxycodone , 100 ng/mL PCP 25 ng/mL Propoxyphene , 300 ng/mL Tricyclic Antidepressants 300 ng/mL Cannabinoids (THC) , 50 ng/mL Tests which yield a presumptive positive result must be , tested using a more specific alternate chemical method in order to obtain, a confirmed analytical result. Additional confirmation and identification, may be ordered on a routine basis, if desired. Presumptive positive urines, are held for two weeks. . (19:29 OD) CBC with Differential Collection DT: MonMay 11, 2016 18:06, White Blood Cell (WBC) Count 7.4 thou/uL, Range (4.8-10.8), Red Blood Cell (RBC) Count 4.31 mill/uL, Range (4.20-5.40), Hemoglobin 12.6 g/dL, Range (12.0-16.0), Hematocrit 39.4 %, Range (36.0-47.0), Mean Corpuscular Volume 91.3 fL, Range (81.0-99.0), Mean Corpuscular Hemoglobin 29.3 pg, Range (27.0-31.0), Mean Corpuscular HGB CONC 32.1 g/dL, Range (32.0-36.0), RBC Distribution Width 13.6 %, Range (11.5-14.5), Platelet Count 279 thou/uL, Range (130-400), Mean Platelet Volume 7.9 fL, Range (7.4-10.4), %Neutrophils 56.9 %, Range (42.0-75.0), %Lymphocytes 26.6 %, Range (21.0-51.0), %Monocytes 8.6 %, Range (0.0-10.0), %Eosinophils 6.8 %, Range (0.0-10.0), %Basophils 1.0 %, Range (0.0-1.0), #Neutrophils 4.2 thou/uL, Range (1.40-6.50), #Lymphocytes 2.0 thou/uL, Range (1.20-3.40), *#Monocytes 0.6 - H thou/uL, Range (0.11-0.59), #Eosinphils 0.5 thou/uL, Range (0.0-0.7), #Basophils 0.1 thou/uL, Range (0.0-0.2). (20:04 LHOD) Alcohol Collection DT: MonMay 11, 2016 18:06, Alcohol Less than 10 mg/dL, Range (Less than 10), The pharmacological response to blood alcohol levels may vary from, individual to individual. Negative: Less than 10, mg/dL Toxic: 50 - 100 mg/dL , Depression of VENEER PULLER: Greater than 100 mg/dL &a-1R&a+25V*p+0X*a9398J*c202B*c15G*c2P*p-0X&a-25V&a+1R Name: Eli Newman : 1940 F76 MedRec: [id number] AcctNum: [id number] Prepared: MonMay 11, 2016 20:15 by Interface Page 14 of 16 pMD [facility] EM[facility]GENCY RECORD , Fatalities reported: Greater than 400 mg/dL . (20:04 OD) Acetaminophen Collection DT: MonMay 11, 2016 18:06, *Acetaminophen Less than 3.0 - L mcg/mL, Range (10.0-30.0), Therapeutic Range: 10.0 - 30.0 ug/mL Toxic Range: Possible, toxicity: 150 - 200 ug/mL Probable toxicity: Greater than 200, ug/mL *IMPORTANT TESTING INFORMATION* The half-life of NAC is 2, hours. The total NAC clearance is 5.6 hours for adults and 11 hours for, Newborns. Testing acetaminophen levels prior to a reasonable time frame, for clearance can cause falsely decreased acetaminophen levels. . (20:04 LHOD) Comprehensive Metabolic Panel Collection DT: MonMay 11, 2016 18:06, *Sodium 146 - H mmol/L, Range (136-145), Potassium 3.5 mmol/L, Range (3.5-5.1), Chloride 107 mmol/L, Range (98-107), Carbon Dioxide 23 mmol/L, Range (23-31), Anion Gap 19 mmol/L, Range (10-20), BUN (Urea Nitrogen) 18 mg/dL, Range (9.8-20.1), Creatinine 1.03 mg/dL, Range (0.6-1.1), Estimated GFR-MDRD 52 , Reference Range for Estimated GFR: Greater than 90, mL/min/1.73 m2 NOTE: The MDRD equation has not been validated for use, with the elderly (over 70 years of age), women, patients with, serious comorbid condition or persons with extremes of body size, muscle, mass, or nutritional status. , *Glucose 127 - H mg/dL, Range (83-110), Calcium 9.7 mg/dL, Range (7.8-10.44), Bilirubin, Total 0.3 mg/dL, Range (0.2-1.2), Protein, Total 6.3 g/dL, Range (5.8-8.1), NOTE: Plasma values are generally 0.3 to 0.5 g/dL higher than serum values, due to the presence of fibrinogen. , Albumin 3.8 g/dL, Range (3.4-4.8), Globulin 2.5 g/dL, Range (2.4-3.5), Alb/Glob Ratio 1.5 g/dL, Range (1.2-2.2), Alkaline Phosphatase 68 U/L, Range (40-150), AST (SGOT) 20 U/L, Range (5-34), ALT (SGPT) 10 U/L, Range (0-55). (20:04 LHOD) Cardiac Profile w/CKMB & TropI Collection DT: MonMay 11, 2016 18:06, CKMB 2.3 ng/mL, Range (0-6.6), Troponin I Less than 0.010 ng/mL, Range (< 0.028). (20:04 LHOD) Protime with INR & PTT Profile Collection DT: MonMay 11, 2016 18:07, Prothrombin Time 12.3 SEC, Range (12.0-14.7), INR-International Normal Ratio 0.9 , ATTENTION: READ &a-1R&a+25V*p+0X*u9283E*c202B*c15G*c2P*p-0X&a-25V&a+1R Name: Eli Newman : 1940 F76 MedRec: [id number] AcctNum: [id number] Prepared: MonMay 11, 2016 20:15 by Interface Page 15 of 16 pMD [facility] EMERGENCY RECORD CAREFULLY , The, recommended therapeutic ranges for oral anticoagulant treatments are: , , Low Intensity: 1.5 - 2.0 Moderate Intensity: 2.0, - 3.0 High Intensity (1): 2.5 - 3.5 High, Intensity (2): 3.0 - 4.0 CRITICAL: >, 4.0 , PTT 29.8 SEC, Range (22.9-36.1). (20:04 LHOD) Keith: SPEEDY=SHARON Manning, Kari FERNANDEZ=SHARON Gaines, Sharita LHOD=MD Desiree, Harley &a-1R&a+25V*p+0X*x4262L*c202B*c15G*c2P*p-0X&a-25V&a+1R Name: Eli Newman : 1940 F76 MedRec: [id number] AcctNum: [id number] Prepared: MonMay 11, 2016 20:15 by Interface Page 16 of 16 pMD [facility]TDD
== END 2016-05-11 19:20 | disposition home or self-care (01) ==
LOC: MADERS 16:36
DX: F03.90 Unspecified dementia, unspecified severity, without behavioral disturbance, psychotic disturbance, mood disturbance, and anxiety (principal); I10 Essential (primary) hypertension; Z79.899 Other long term (current) drug therapy
CPT/HCPCS: 36415; 36416; 70450; 71010; 80053; 80306; 80307; 81003; 82553; 84484; 85025; 85610; 85730; 93005

== ENCOUNTER 2018-12-01 10:28 | Emergency (ER) | payer MEDICARE, BC ==
--- NOTE | 2018-12-01 11:07 | RAD ---
EXAM: Left wrist: 3 views INDICATIONS: Injury COMPARISON: None. FINDINGS: Transverse fracture through the distal radius without significant displacement. Degenerativ e changes in the intercarpal joints and carpometacarpal joints. IMPRESSION: Fracture distal radius
[2018-12-01 12:06] LABS: Bilirubin Small (Negative); Blood, Urine Negative (Negative); Clarity Clear (Clear); Glucose, Urine (Dipstick) Negative (Negative); Leukocyte Negative (Negative); Nitrite Negative (Negative); Protein, Urine (Dipstick) 30 mg/dL (Neg-Trace); Urobilinogen 0.2 mg/dL (Less than 2)
[2018-12-01 12:13] LABS: Bacteria/HPF Rare-Few HPF (None Seen); Mucous/LPF 2+ LPF (<2+); RBC/HPF None Seen HPF (0-3); Squamous Epithelial 0-3 HPF (0-3); WBC/HPF None Seen HPF (0-3)
== END 2018-12-01 12:50 | disposition home or self-care (01) ==
LOC: MADERS 10:28
DX: S52.502A Unspecified fracture of the lower end of left radius, initial encounter for closed fracture (principal); K21.9 Gastro-esophageal reflux disease without esophagitis; I10 Essential (primary) hypertension; Z79.891 Long term (current) use of opiate analgesic; Z79.899 Other long term (current) drug therapy; W19.XXXA Unspecified fall, initial encounter; Y93.02 Activity, running
CPT/HCPCS: 73110; 82550; 84484; 93005; G0390; 29125; 81003; 81015; A4353

== ENCOUNTER 2019-01-17 12:25 | Outpatient (CLI) | payer MEDICARE, BC ==
--- NOTE | 2019-01-17 14:07 | RAD ---
TWO VIEW CHEST: INDICATION: TB exposure. COMPARISON: Portable film of 01/08/2019. FINDINGS: The lung box appear clear. Vascular markings normal. Heart size within normal range. Dense radha cardial calcification again noted which has been previously described. Mild wedging of several mid t horacic vertebrae noted. IMPRESSION: No acute lung process. No evidence of primary or secondary tuberculosis. POS: [facility]
== END 2019-01-17 12:26 | disposition home or self-care (01) ==
LOC: MADRAD 12:25
PROVIDERS: ATTEND Nurse Practitioner Adult Health
DX: Z11.1 Encounter for screening for respiratory tuberculosis (principal)
CPT/HCPCS: 71046